=== PATIENT | female | born 1940 | race Caucasian/White ===

== ENCOUNTER 2019-04-08 10:39 | Outpatient (CLI) | payer MEDICARE, MEDICAID, SELFPAY ==
[2019-04-08 11:54] LABS: Albumin Level 3.5 g/dL (3.5-5.2); Anion Gap 16.8 (5-19); Blood Urea Nitrogen 18 mg/dL (8-23); Calcium 9.6 mg/dL (8.5-10.5); Carbon Dioxide 23 mmol/L (22-29); Chloride 105 mmol/L (98-107); Glucose 141 mg/dL (74-106); Phosphorus 3.6 mg/dL (2.5-4.5); Potassium 3.8 mmol/L (3.5-5.1); Sodium 141 mmol/L (136-145)
[2019-04-08 12:17] LABS: Calcium 9.4 mg/dL (8.5-10.5)
[2019-04-09 10:34] LABS: Creatinine Urine, Random 57 mg/dL (28-217); Microalbumin Random Urine 10 ug/dL (0-20)
[2019-04-09 10:39] LABS: Microalbum Creatinine Ratio Ur 175 mg/dL (0-20)
== END 2019-04-08 10:40 | disposition home or self-care (01) ==
LOC: LAB 10:46
PROVIDERS: Family Provider Internal Medicine; PCP Internal Medicine; Visit Provider Internal Medicine Nephrology
DX: N18.4 Chronic kidney disease, stage 4 (severe) (principal)
CPT/HCPCS: 36415; 80069; 82044; 82310; 83970

== ENCOUNTER 2020-02-21 15:29 | Outpatient (CLI) | payer MEDICARE, MEDICAID, SELFPAY | END 2020-02-21 15:30 | disposition home or self-care (01) | PROVIDERS: PCP Internal Medicine; Visit Provider Internal Medicine | DX: R19.7 Diarrhea, unspecified (principal) | CPT/HCPCS: 87493 ==

== ENCOUNTER 2020-11-25 15:27 | Outpatient (CLI) | payer MEDICARE, MEDICAID, SELFPAY ==
[2020-11-25 16:13] LABS: Basophils % 0.8 %; Eosinophils # 0.1 10^3/uL (0.0-0.8); Eosinophils % 1.4 %; Hemoglobin 12.5 g/dL (11.5-15.3); Lymphocytes # 0.8 10^3/uL (0.8-4.8); Lymphocytes % 16.5 %; Mean Corpuscular HGB Conc 31.3 g/dL (30.0-36.0); Mean Corpuscular Hemoglobin 30.3 pg (28.0-34.0); Mean Corpuscular Volume 97.1 fl (81-99); Mean Platelet Volume 10.2 fL (7.4-10.4); Monocytes # 0.4 10^3/uL (0.2-0.9); Monocytes % 8.2 %; Neutrophils # 3.56 10^3/uL (1.8-7.7); Neutrophils % 72.7 %; Nucleated Red Blood Cells % 0 %; Platelet Count 114 10^3/cmm (130-400); Red Blood Count 4.12 10^6/uL (4.1-5.3); Red Cell Distribution Width 14.9 % (12.1-15.1); White Blood Count 4.9 10^3/uL (4.0-10.0)
[2020-11-25 16:43] LABS: Albumin Level 3.3 g/dL (3.5-5.2); Blood Urea Nitrogen 32 mg/dL (8-23); Calcium 8.6 mg/dL (8.5-10.5); Carbon Dioxide 16 mmol/L (22-29); Chloride 105 mmol/L (98-107); Glucose 183 mg/dL (65-115); Phosphorus 2.9 mg/dL (2.5-4.5); Sodium 134 mmol/L (136-145)
[2020-11-25 16:44] LABS: Anion Gap 17.4 (5-19); Potassium 4.4 mmol/L (3.5-5.1)
[2020-11-25 17:31] LABS: Creatinine Urine, Random 98 mg/dL (28-217); Microalbumin Random Urine 36 ug/dL (0-20)
[2020-11-25 17:32] LABS: Calcium 8.3 mg/dL (8.5-10.5); Parathyroid Hormone 85.9 pg/mL (15-65)
[2020-11-25 17:35] LABS: Microalbum Creatinine Ratio Ur 367 mg/dL (0-20)
== END 2020-11-25 15:28 | disposition home or self-care (01) ==
LOC: LAB 15:36
PROVIDERS: PCP Internal Medicine; Visit Provider Internal Medicine Nephrology
DX: N18.4 Chronic kidney disease, stage 4 (severe) (principal)
CPT/HCPCS: 36415; 80069; 82044; 82310; 83970; 85025

== ENCOUNTER → 2021-03-17 12:03 | Outpatient (BNVA) | payer MEDICARE, MEDICAID, SELFPAY | PROVIDERS: PCP Internal Medicine; Visit Provider Internal Medicine | DX: E11.9 Type 2 diabetes mellitus without complications (principal); E87.6 Hypokalemia | CPT/HCPCS: 80048 ==

== ENCOUNTER 2021-04-06 15:48 | Outpatient (CLI) | payer MEDICARE, MEDICAID, SELFPAY ==
[2021-04-06 16:30] LABS: Basophils % 0.8 %; Eosinophils # 0.1 10^3/uL (0.0-0.8); Eosinophils % 2.8 %; Hematocrit 39.1 % (37.0-47.0); Hemoglobin 12.6 g/dL (11.5-15.3); Lymphocytes % 26.1 %; Mean Corpuscular HGB Conc 32.2 g/dL (30.0-36.0); Mean Corpuscular Hemoglobin 30.2 pg (28.0-34.0); Mean Corpuscular Volume 93.8 fl (81-99); Mean Platelet Volume 10.8 fL (7.4-10.4); Monocytes # 0.4 10^3/uL (0.2-0.9); Monocytes % 11.4 %; Neutrophils # 2.28 10^3/uL (1.8-7.7); Neutrophils % 58.9 %; Nucleated Red Blood Cells % 0 %; Platelet Count 103 10^3/cmm (130-400); Red Blood Count 4.17 10^6/uL (4.1-5.3); Red Cell Distribution Width 15.9 % (12.1-15.1); White Blood Count 3.9 10^3/uL (4.0-10.0)
[2021-04-06 17:31] LABS: Creatinine Urine, Random 47 mg/dL (28-217); Microalbumin Random Urine 13 ug/dL (0-20)
[2021-04-06 17:32] LABS: Blood Urea Nitrogen 21 mg/dL (8-23); Calcium 8.9 mg/dL (8.5-10.5); Carbon Dioxide 22 mmol/L (22-29); Chloride 98 mmol/L (98-107); Glucose 252 mg/dL (65-115); Phosphorus 3.1 mg/dL (2.5-4.5); Sodium 133 mmol/L (136-145)
[2021-04-06 17:33] LABS: Microalbum Creatinine Ratio Ur 277 mg/dL (0-20)
[2021-04-06 17:34] LABS: Anion Gap 16.9 (5-19); Potassium 3.9 mmol/L (3.5-5.1)
[2021-04-06 18:15] LABS: Calcium 8.8 mg/dL (8.5-10.5)
[2021-04-06 19:29] LABS: Parathyroid Hormone 66.6 pg/mL (15-65)
== END 2021-04-06 15:49 | disposition home or self-care (01) ==
LOC: LAB 16:05
PROVIDERS: PCP Internal Medicine; Visit Provider Internal Medicine Nephrology
DX: N18.4 Chronic kidney disease, stage 4 (severe) (principal)
CPT/HCPCS: 36415; 80069; 82044; 82310; 83970; 85025

== ENCOUNTER 2021-10-06 10:09 | Outpatient (CLI) | payer MEDICARE, SELFPAY ==
[2021-10-06 10:49] LABS: Basophils # 0.1 10^3/uL (0.0-0.1); Eosinophils # 0.3 10^3/uL (0.0-0.8); Eosinophils % 5.2 %; Hemoglobin 11.8 g/dL (11.5-15.3); Lymphocytes # 0.8 10^3/uL (0.8-4.8); Lymphocytes % 16.9 %; Mean Corpuscular HGB Conc 34.7 g/dL (30.0-36.0); Mean Corpuscular Hemoglobin 31.4 pg (28.0-34.0); Mean Corpuscular Volume 90.4 fl (81-99); Mean Platelet Volume 10.3 fL (7.4-10.4); Monocytes # 0.5 10^3/uL (0.2-0.9); Neutrophils # 3.18 10^3/uL (1.8-7.7); Neutrophils % 66.7 %; Nucleated Red Blood Cells % 0 %; Platelet Count 106 10^3/cmm (130-400); Red Blood Count 3.76 10^6/uL (4.1-5.3); Red Cell Distribution Width 13.4 % (12.1-15.1); White Blood Count 4.8 10^3/uL (4.0-10.0)
[2021-10-06 11:03] LABS: Creatinine Urine, Random 43 mg/dL (28-217); Microalbumin Random Urine 20 ug/dL (0-20)
[2021-10-06 11:03] LABS: Albumin Level 3.1 g/dL (3.5-5.2); Anion Gap 13.8 (5-19); Blood Urea Nitrogen 24 mg/dL (8-23); Carbon Dioxide 21 mmol/L (22-29); Chloride 98 mmol/L (98-107); Glucose 266 mg/dL (65-115); Phosphorus 2.6 mg/dL (2.5-4.5); Potassium 3.8 mmol/L (3.5-5.1); Sodium 129 mmol/L (136-145)
[2021-10-06 11:04] LABS: Microalbum Creatinine Ratio Ur 465 mg/dL (0-20)
[2021-10-06 11:06] LABS: Parathyroid Hormone 100.5 pg/mL (15-65)
[2021-10-06 11:19] LABS: 25 Hydroxy Vitamin D 11 ng/mL (30-100)
== END 2021-10-06 10:10 | disposition home or self-care (01) ==
PROVIDERS: PCP Internal Medicine; Visit Provider Registered Nurse
DX: N18.4 Chronic kidney disease, stage 4 (severe) (principal)
CPT/HCPCS: 36415; 80069; 82044; 82306; 82310; 83970; 85025

== ENCOUNTER 2021-10-13 15:26 | Outpatient (CLI) | payer MEDICARE, SELFPAY ==
[2021-10-13 17:09] LABS: Blood Urea Nitrogen 27 mg/dL (8-23); Calcium 8.3 mg/dL (8.5-10.5); Carbon Dioxide 26 mmol/L (22-29); Chloride 97 mmol/L (98-107); Glucose 384 mg/dL (65-115); Osmolality Calculated 293 mOsm/kg (285-295); Sodium 131 mmol/L (136-145)
[2021-10-13 17:12] LABS: Anion Gap 12.6 (5-19); Potassium 4.6 mmol/L (3.5-5.1)
== END 2021-10-13 15:27 | disposition home or self-care (01) ==
PROVIDERS: PCP Internal Medicine; Visit Provider Internal Medicine Nephrology
DX: N18.4 Chronic kidney disease, stage 4 (severe) (principal)
CPT/HCPCS: 36415; 80048

== ENCOUNTER 2021-10-27 14:29 | Outpatient (CLI) | payer MEDICARE, MEDICAID, SELFPAY ==
[2021-10-27 15:42] LABS: Blood Urea Nitrogen 27 mg/dL (8-23); Carbon Dioxide 25 mmol/L (22-29); Chloride 99 mmol/L (98-107); Glucose 385 mg/dL (65-115); Osmolality Calculated 299 mOsm/kg (285-295); Sodium 134 mmol/L (136-145)
[2021-10-27 15:47] LABS: Anion Gap 14.2 (5-19); Potassium 4.2 mmol/L (3.5-5.1)
== END 2021-10-27 14:30 | disposition home or self-care (01) ==
LOC: LAB 14:33
PROVIDERS: PCP Internal Medicine; Visit Provider Internal Medicine Nephrology
DX: E87.1 Hypo-osmolality and hyponatremia (principal)
CPT/HCPCS: 80048

== ENCOUNTER 2022-01-12 13:19 | Outpatient (CLI) | payer MEDICARE, SELFPAY ==
[2022-01-12 14:20] LABS: Basophils # 0.1 10^3/uL (0.0-0.1); Basophils % 1.1 %; Eosinophils # 0.3 10^3/uL (0.0-0.8); Eosinophils % 5.5 %; Hematocrit 34.8 % (37.0-47.0); Hemoglobin 11.6 g/dL (11.5-15.3); Lymphocytes # 0.7 10^3/uL (0.8-4.8); Lymphocytes % 14.8 %; Mean Corpuscular HGB Conc 33.3 g/dL (30.0-36.0); Mean Platelet Volume 11.1 fL (7.4-10.4); Monocytes # 0.5 10^3/uL (0.2-0.9); Monocytes % 10.6 %; Neutrophils # 3.07 10^3/uL (1.8-7.7); Neutrophils % 67.8 %; Nucleated Red Blood Cells % 0 %; Platelet Count 94 10^3/cmm (130-400); Red Blood Count 3.74 10^6/uL (4.1-5.3); Red Cell Distribution Width 13.9 % (12.1-15.1); White Blood Count 4.5 10^3/uL (4.0-10.0)
[2022-01-12 14:43] LABS: Albumin Level 2.9 g/dL (3.5-5.2); Anion Gap 12.4 (5-19); Blood Urea Nitrogen 26 mg/dL (8-23); Calcium 8.3 mg/dL (8.5-10.5); Carbon Dioxide 26 mmol/L (22-29); Chloride 97 mmol/L (98-107); Glucose 309 mg/dL (65-115); Phosphorus 2.5 mg/dL (2.5-4.5); Potassium 4.4 mmol/L (3.5-5.1); Sodium 131 mmol/L (136-145)
[2022-01-12 14:44] LABS: Calcium 8.1 mg/dL (8.5-10.5)
[2022-01-12 14:48] LABS: Parathyroid Hormone 121.1 pg/mL (15-65)
[2022-01-12 17:45] LABS: Creatinine Urine, Random 28 mg/dL (28-217); Microalbumin Random Urine 11 ug/dL (0-20)
[2022-01-12 17:49] LABS: Microalbum Creatinine Ratio Ur 393 mg/dL (0-20)
== END 2022-01-12 13:20 | disposition home or self-care (01) ==
PROVIDERS: PCP Internal Medicine; Visit Provider Registered Nurse
DX: N18.4 Chronic kidney disease, stage 4 (severe) (principal)
CPT/HCPCS: 80069; 82044; 82310; 83970; 85025

== ENCOUNTER 2022-04-13 15:02 | Outpatient (CLI) | payer MEDICARE, MEDICAID, SELFPAY ==
[2022-04-13 16:08] LABS: Basophils # 0.1 10^3/uL (0.0-0.1); Eosinophils # 0.2 10^3/uL (0.0-0.8); Eosinophils % 4.2 %; Hematocrit 35.6 % (37.0-47.0); Hemoglobin 11.9 g/dL (11.5-15.3); Lymphocytes # 0.6 10^3/uL (0.8-4.8); Lymphocytes % 11.5 %; Mean Corpuscular HGB Conc 33.4 g/dL (30.0-36.0); Mean Corpuscular Hemoglobin 31.2 pg (28.0-34.0); Mean Corpuscular Volume 93.4 fl (81-99); Mean Platelet Volume 10.4 fL (7.4-10.4); Monocytes # 0.5 10^3/uL (0.2-0.9); Monocytes % 11.1 %; Neutrophils # 3.44 10^3/uL (1.8-7.7); Nucleated Red Blood Cells % 0 %; Platelet Count 115 10^3/cmm (130-400); Red Blood Count 3.81 10^6/uL (4.1-5.3); White Blood Count 4.8 10^3/uL (4.0-10.0)
[2022-04-13 16:49] LABS: Calcium 8.2 mg/dL (8.5-10.5); Parathyroid Hormone 177.3 pg/mL (15-65)
[2022-04-13 18:08] LABS: Creatinine Urine, Random 130 mg/dL (28-217); Microalbumin Random Urine 19 ug/dL (0-20)
[2022-04-13 18:09] LABS: Microalbum Creatinine Ratio Ur 146 mg/dL (0-20)
[2022-04-13 18:53] LABS: Albumin Level 2.7 g/dL (3.5-5.2); Blood Urea Nitrogen 27 mg/dL (8-23); Calcium 8.2 mg/dL (8.5-10.5); Carbon Dioxide 20 mmol/L (22-29); Chloride 102 mmol/L (98-107); Glucose 303 mg/dL (65-115); Phosphorus 2.6 mg/dL (2.5-4.5); Sodium 136 mmol/L (136-145)
[2022-04-13 19:04] LABS: 25 Hydroxy Vitamin D 35 ng/mL (30-100)
== END 2022-04-13 15:03 | disposition home or self-care (01) ==
PROVIDERS: PCP Internal Medicine; Visit Provider Registered Nurse
DX: E55.9 Vitamin D deficiency, unspecified (principal)
CPT/HCPCS: 80069; 82044; 82306; 82310; 83970; 85025

== ENCOUNTER 2022-04-29 11:37 | Outpatient (CLI) | payer MEDICARE, MEDICAID, SELFPAY ==
[2022-04-29 13:20] LABS: Albumin Level 2.6 g/dL (3.5-5.2); Anion Gap 12.4 (5-19); Blood Urea Nitrogen 28 mg/dL (8-23); Calcium 8.7 mg/dL (8.5-10.5); Carbon Dioxide 29 mmol/L (22-29); Chloride 99 mmol/L (98-107); Glucose 347 mg/dL (65-115); Phosphorus 2.6 mg/dL (2.5-4.5); Potassium 4.4 mmol/L (3.5-5.1); Sodium 136 mmol/L (136-145)
== END 2022-04-29 11:38 | disposition home or self-care (01) ==
PROVIDERS: PCP Internal Medicine; Visit Provider Internal Medicine Nephrology
DX: N18.4 Chronic kidney disease, stage 4 (severe) (principal)
CPT/HCPCS: 36415; 80069

== ENCOUNTER 2022-05-03 19:47 | Emergency (ER) | payer MEDICARE, MEDICAID, SELFPAY ==
[2022-05-03 20:16] VITALS: BP 151/69; PULSE 77; RESP 22; TEMP 36.7; O2SAT 96; BMI 31.6
[2022-05-03 21:29] LABS: Basophils % 0.2 %; Eosinophils % 0.2 %; Hematocrit 34.4 % (37.0-47.0); Hemoglobin 11.4 g/dL (11.5-15.3); Lymphocytes # 0.3 10^3/uL (0.8-4.8); Lymphocytes % 4.2 %; Mean Corpuscular HGB Conc 33.1 g/dL (30.0-36.0); Mean Corpuscular Hemoglobin 30.4 pg (28.0-34.0); Mean Corpuscular Volume 91.7 fl (81-99); Mean Platelet Volume 10.6 fL (7.4-10.4); Monocytes # 0.3 10^3/uL (0.2-0.9); Monocytes % 4.4 %; Neutrophils # 5.96 10^3/uL (1.8-7.7); Neutrophils % 90.4 %; Nucleated Red Blood Cells % 0 %; Platelet Count 95 10^3/cmm (130-400); Red Blood Count 3.75 10^6/uL (4.1-5.3); Red Cell Distribution Width 13.7 % (12.1-15.1); White Blood Count 6.6 10^3/uL (4.0-10.0)
[2022-05-03 21:40] VITALS: BP 152/62; PULSE 74; RESP 17; TEMP 36.7; O2SAT 97
[2022-05-03 22:02] LABS: Alanine Aminotransferase 59 U/L (0-33); Albumin Level 2.8 g/dL (3.5-5.2); Alkaline Phosphatase 349 U/L (35-105); Anion Gap 19.2 (5-19); Aspartate Amino Transferase 101 U/L (0-32); Blood Urea Nitrogen 33 mg/dL (8-23); Calcium 8.1 mg/dL (8.5-10.5); Carbon Dioxide 23 mmol/L (22-29); Chloride 95 mmol/L (98-107); Globulin 3.3 g/dL (1.3-4.6); Lipase 36 U/L (13-60); NT Pro B Type Natriuretic Pept 6285 pg/mL (0-450); Osmolality Calculated 311 mOsm/kg (285-295); Potassium 5.2 mmol/L (3.5-5.1); Sodium 132 mmol/L (136-145); Total Bilirubin 1.5 mg/dL (0.15-1.2); Total Protein 6.1 g/dL (6.6-8.7)
[2022-05-03 22:13] LABS: Glucose 634 mg/dL (65-115)
--- NOTE | 2022-05-03 22:22 | ECG_ITS ---
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 Measurements Intervals [place] Rate: 76 P: 0 TN: 0 QRS: -47 QRSD: 158 T: 128 QT: 478 QTc: 540 Interpretive Statements ATRIAL FIBRILLATION LEFT AXIS DEVIATION [QRS AXIS < -30] INTRAVENTRICULAR CONDUCTION DELAY [130+ ms QRS DURATION] Compared to ECG 11/13/2018 04:24:25 Sinus rhythm no longer present Myocardial infarct finding no longer present Electronically Signed On 05-04-2022 14:22:17 ELECTRONICS TESTER by Frantz Warren M.D. [id number]
--- NOTE | 2022-05-03 22:22 | CTR_ITS ---
PROCEDURE INFORMATION: Exam: CT Head Without Contrast Exam date and time: 05/03/2022 10:48 PM Age: 81 years old Clinical indication: Altered mental status/memory loss; Confusion or disorientation; Prior surgery; Surgery type: Cataract; Patient HX: Confusion with general weakness. ; Additional info: AMS TECHNIQUE: Imaging protocol: Computed tomography of the head without contrast. Radiation optimization: All CT scans at this facility use at least one of these dose optimization techniques: automated exposure control; mA and/or kV adjustment per patient size (includes targeted exams where dose is matched to clinical indication); or iterative reconstruction. REPORTING DATA: Count of CT and Cardiac NM exams in prior 12 months: This patient has received 0 known CTs and 0 known cardiac nuclear medicine studies in the 12 months prior to the current study. COMPARISON: CT head wo con* [id number] 10/25/2018 2:27 PM RADIATION DOSE METRICS: Total DLP (mGy-cm): 953.38 FINDINGS: Brain: Moderate diffuse white matter disease likely reflecting chronic microvascular ischemic changes. Cerebral ventricles: No ventriculomegaly. Paranasal sinuses: Visualized sinuses are unremarkable. No fluid levels. Mastoid air cells: Visualized mastoid air cells are well aerated. Bones/joints: Unremarkable. No acute fracture. Soft tissues: Unremarkable. CT/CT head wo con* [id number] IMPRESSION: Negative for intracranial hemorrhage or mass effect.
--- NOTE | 2022-05-03 22:22 | XRR_ITS ---
PROCEDURE INFORMATION: Exam: XR Chest Exam date and time: 05/03/2022 10:26 PM Age: 81 years old Clinical indication: Shortness of breath; Prior surgery; Surgery type: Gb; Patient HX: General weakness with SOB. History of afib. TECHNIQUE: Imaging protocol: Radiologic exam of the chest. Views: 1 view. COMPARISON: CR XR chest 1V [id number] 11/12/2018 11:21 PM FINDINGS: Lungs: Bibasilar atelectasis versus infiltrate. Right lower lobe calcified benign granuloma. Pleural spaces: Unremarkable. No pleural effusion. No pneumothorax. Heart/Mediastinum: Unremarkable. No cardiomegaly. Bones/joints: Unremarkable. XR/XR chest 1V portable [id number] IMPRESSION: 1. Bibasilar atelectasis versus infiltrate. 2. Right lower lobe calcified benign granuloma.
--- NOTE | 2022-05-03 22:28 | ED_ITS ---
HPI - Weakness General: Chief complaint: Weakness Stated complaint: bilateral swelling Time Seen by Provider: 05/03/22 22:14 Source: patient and family Mode of arrival: ambulatory Limitations: no limitations History of Present Illness: 81-year-old female with a history lower extremity edema she has been on diuretics but daughter states that her edema is worsened and she has had some weeping states has been worse today states today she has had some weakness along with some difficulty walking she does live with her daughter who takes care of her states that she had some slight confusion today as well she has been on steroids for inflammation of the salivary gland her glucose here is in the 600s she is a diabetic she denies any chest pain patient answering my questions here appropriately at this time. Denies any pain in her legs. Associated symptoms: Reports confusion; Denies chest pain, dysuria, easy bruising, nausea or vomiting Review of Systems Const: Reports: fatigue Eyes: Denies: blurry vision or eye discomfort ENMT: Denies: throat pain or dental pain Card: Denies: chest pain Resp: Reports: dyspnea GI: Denies: abdominal pain, nausea, vomiting or diarrhea : Denies: dysuria Musc: Reports: extremity swelling Skin/Breast: Denies: rash Neuro: Reports: confusion Psych: Denies: depression Davi/Lymph: Denies: easy bruising All/Imm: Denies: urticaria PFSH ED PFSH: Medical History (Updated 05/04/22 @ 01:15 by Debora Seymour MD) A-fib CKD (chronic kidney disease), stage III Diabetes mellitus HTN (hypertension), benign Surgical History S/P appendectomy S/P cataract surgery S/P cholecystectomy S/P hysterectomy S/P tonsillectomy and adenoidectomy Family History Mother Hypertension Other Cancer Diabetes Stroke Social History Smoking and tobacco status: former smoker Alcohol intake: never Caregiver/support person: Yes Marital status: / Physical Exam Const: COMMON NORMALS: patient oriented x3 and healthy appearing HENMT: COMMON NORMALS: normocephalic and atraumatic HEAD & SCALP: normocephalic and atraumatic Eye: COMMON NORMALS: Equal, round and reactive pupils present and EOMs intact bilaterally PUPIL: Yes Equal, round and reactive pupils present Neck/C-Spine: COMMON NORMALS: full ROM and supple Chest: COMMONS NORMALS: normal inspection of the chest and normal palpation of entire chest wall Resp: COMMON NORMALS: normal respiratory effort, No retractions, No use of accessory muscles and clear to auscultation bilaterally AUSCULTATION: clear to auscultation bilaterally Cardio: COMMON NORMALS: regular rate, regular rhythm and No murmurs present (Cardio) RATE: regular rate RHYTHM: regular rhythm GI: COMMON NORMALS: Normal to inspection, nondistended, normoactive bowel sounds present, Soft to palpation, non-tender and no masses PALPATION: Yes Soft to palpation Extremity: COMMON NORMALS: full ROM NARRATIVE EXTREMITY EXAM: 2+edema to le Neuro: COMMON NORMALS: patient oriented x3, moves all extremities and no focal motor deficits Psych: COMMON NORMALS: mental status grossly normal, Normal thought process present and cooperative THOUGHT PROCESS: Normal thought process present Skin: COMMON NORMALS: no rashes or lesions noted and no wounds GENERAL SKIN EXAM: no rashes or lesions noted Course Vital Signs: Vital signs: Vital Signs Temperature 98.1 F 05/03/22 21:40 Pulse Rate 77 05/04/22 00:38 Respiratory Rate 20 H 05/04/22 00:38 Blood Pressure 152/62 05/03/22 21:40 Pulse Oximetry 100 05/04/22 00:38 Oxygen Delivery Me thod 05/03/22 21:40 MDM - Weakness Medical Decision Making Patient presents here with lower extremity edema its been chronic in nature did give her dose of Lasix here she is hyperglycemic likely from her prednisone her blood sugar here is improved as well she feels improved like to go home and informed her daughter that they need to probably increase her insulin while she is on the steroids 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 Lab Data 05/03/22 21:09 05/03/22 21:09 Radiology Impressions Chest X-Ray 05/03/22 22:22 IMPRESSION: 1. Bibasilar atelectasis versus infiltrate. 2. Right lower lobe calcified benign granuloma. Head CT 05/03/22 22:22 IMPRESSION: Negative for intracranial hemorrhage or mass effect. Laboratory Results WBC 6.6 10^3/uL (4.0-10.0) 05/03/22 21:09 RBC 3.75 10^6/uL (4.1-5.3) L 05/03/22 21:09 Hgb 11.4 g/dL (11.5-15.3) L 05/03/22 21:09 Hct 34.4 % (37.0-47.0) L 05/03/22 21:09 MCV 91.7 fl (81-99) 05/03/22 21:09 MCH 30.4 pg (28.0-34.0) 05/03/22 21: MCHC 33.1 g/dL (30.0-36.0) 05/03/22 21:09 RDW 13.7 % (12.1-15.1) 05/03/22 21:09 Plt Count 95 10^3/cmm (130-400) L 05/03/22 21:09 MPV 10.6 fL (7.4-10.4) H 05/03/22 21:09 Neut % (Auto) 90.4 % 05/03/22 21:09 Lymph % (Auto) 4.2 % 05/03/22 21:09 [place] % (Auto) 4.4 % 05/03/22 21:09 Eos % (Auto) 0.2 % 05/03/22 21:09 Baso % (Auto) 0.2 % 05/03/22 21:09 Neut # (Auto) 5.96 10^3/uL (1.8-7.7) 05/03/22 21:09 Lymph # (Auto) 0.3 10^3/uL (0.8-4.8) L 05/03/22 21:09 [place] # (Auto) 0.3 10^3/uL (0.2-0.9) 05/03/22 21:09 Eos # (Auto) 0.0 10^3/uL (0.0-0.8) 05/03/22 21:09 Baso # (Auto) 0.0 10^3/uL (0.0-0.1) 05/03/22 21:09 Nucleated RBC % (auto) 0 % 05/03/22 21:09 Nucleated RBCs # 0.0 /100WBC 05/03/22 21:09 Sodium 132 mmol/L (136-145) L 05/03/22 21:09 Potassium 5.2 mmol/L (3.5-5.1) H 05/03/22 21:09 Chloride 95 mmol/L (98-107) L 05/03/22 21:09 Carbon Dioxide 23 mmol/L (22-29) 05/03/22 21:09 Anion Gap 19.2 (5-19) H 05/03/22 21:09 BUN 33 mg/dL (8-23) H 05/03/22 21:09 Creatinine 2.3 mg/dL (0.5-0.9) H 05/03/22 21:09 GFR Calculation Not Reportable 05/03/22 21:09 Glucose 634 mg/dL (65-115) H* 05/03/22 21:09 POC Glucose 453 mg/dL (70-110) H 05/04/22 01:04 Calculated Osmolality 311 mOsm/kg (285-295) H 05/03/22 21:09 Calcium 8.1 mg/dL (8.5-10.5) L 05/03/22 21:09 Total Bilirubin 1.5 mg/dL (0.15-1.2) H 05/03/22 21:09 AST 101 U/L (0-32) H 05/03/22 21:09 ALT 59 U/L (0-33) H 05/03/22 21:09 Alkaline Phosphatase 349 U/L (35-105) H 05/03/22 21:09 NT-Pro-B Natriuret Pep 6285 pg/mL (0-450) H 05/03/22 21:09 Total Protein 6.1 g/dL (6.6-8.7) L 05/03/22 21:09 Albumin 2.8 g/dL (3.5-5.2) L 05/03/22 21:09 Globulin 3.3 g/dL (1.3-4.6) 05/03/22 21:09 Lipase 36 U/L (13-60) 05/03/22 21:09 Urine Color Yellow (Yellow) 05/04/22 00:52 Urine Appearance Sl hazy (CLEAR) A 05/04/22 00:52 Urine pH 7 (5-7) 05/04/22 00:52 Ur Specific [place] 1.010 (1.005-1.030) 05/04/22 00:52 Urine Protein Neg (Negative) 05/04/22 00:52 Urine Glucose (UA) 4+ (Normal) H 05/04/22 00:52 Urine Ketones Negative (Negative) 05/04/22 00:52 Urine Blood 2+ (Negative) H 05/04/22 00:52 Urine Nitrate Negative (Negative) 05/04/22 00:52 Urine Bilirubin Neg (Negative) 05/04/22 00:52 Urine Urobilinogen Norm mg/dL (Negative) 05/04/22 00:52 Ur Leukocyte Esterase Negative (Negative) 05/04/22 00:52 Urine RBC None /hpf (0-2) 05/04/22 00:52 Urine WBC None /hpf (0-5) 05/04/22 00:52 Ur Squamous Epith Cells None /hpf (0-5) 05/04/22 00:52 Amorphous Sediment 1+ /hpf 05/04/22 00:52 Urine Bacteria None /hpf (NONE) 05/04/22 00:52 EKG Data EKG 1: I personally reviewed and interpreted this EKG as follows: EKG interpretation date: 05/03/22 EKG interpretation time: 22:40 Interpretation: afib hr [address] or t wave abnormalities qrs 76 qtc 158 Discharge Plan Discharge Patient Disposition: Home Clinical Impression: Bilateral edema of lower extremity, Hyperglycemia Condition: Stable Prescriptions: No Action sodium bicarbonate 650 mg tablet 650 mg PO BID ketoconazole 200 mg tablet 200 mg PO DAILY Qty: 10 0RF nitroglycerin [Nitrostat] 0.4 mg tablet, sublingual 0.4 mg SUBLINGUAL Q5M PRN (Reason: chest pain) Qty: 30 3RF furosemide 40 mg tablet 40 mg PO QAM PRN (Reason: edema) Qty: 90 3RF rosuvastatin 20 mg tablet 20 mg PO DAILY Qty: 90 3RF (DME) ReliOn Prime Test Strips Strip See Rx Instructions .Route Qty: 100 3RF Rx Instructions: Test once daily clopidogrel 75 mg tablet See Rx Instructions .ROUTE .COMPLEX Qty: 30 3RF Dose Instruction: Take 1 tablet by mouth once daily Rx Instructions: Take 1 tablet by mouth once daily potassium chloride 10 mEq capsule, extended release 20 meq PO DAILY PRN (Reason: low potassium) Qty: 60 3RF Rx Instructions: SMALLEST TAB POSSIBLE Januvia 100 mg tablet 100 mg PO DAILY Qty: 30 3RF glimepiride 4 mg tablet 4 mg PO BID Qty: 60 3RF Discharge Orders: Discharge ED (Routine); Ordered 05/04/22 Ordered By: Debora Seymour Referrals: Kalin Hawkins MD [Primary Care Provider] - 1-3 days Discharge Diet: Advance as tolerated Discharge Activity: Resume usual activity Patient Instructions: Leg Edema (ED) Coding Level of Care Code 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
[2022-05-04 00:04] LABS: Glucose Point of Care 528 mg/dL (70-110)
[2022-05-04 00:04] LABS: Glucose Point of Care 531 mg/dL (70-110)
[2022-05-04] MEDS: FUROsemide 10 mg/mL SDV 10mL 60 MG IVP (00:06)
[2022-05-04] MEDS: insulin regular-human 100 units/1 mL 10 UNIT IVP (00:09)
[2022-05-04 00:38] VITALS: PULSE 77; RESP 20; O2SAT 100
[2022-05-04 01:06] LABS: Bilirubin Urine Neg (Negative); Blood Urine 2+ (Negative); Glucose Urine UA 4+ (Normal); Ketones Urine Negative (Negative); Nitrate Urine Negative (Negative); Protein Urine Neg (Negative); Urine Appearance SL Hazy (CLEAR); Urine Color Yellow (Yellow); pH Urine 7 (5-7)
[2022-05-04 01:07] LABS: Glucose Point of Care 463 mg/dL (70-110)
[2022-05-04 01:07] LABS: Add Urine Microscopic? YES; Leukocyte Esterase Urine Negative (Negative); Urobilinogen Urine Norm (Negative)
[2022-05-04 01:07] LABS: Glucose Point of Care 453 mg/dL (70-110)
[2022-05-04 01:09] LABS: Amorphous Sediment Urine 1+ /hpf
[2022-05-04] MEDS: insulin regular-human 100 units/1 mL 6 UNIT IVP (01:31)
[2022-05-04 02:19] LABS: Glucose Point of Care 392 mg/dL (70-110)
== END 2022-05-04 02:40 | disposition home or self-care (01) ==
PROVIDERS: Emergency Provider Emergency Medicine; PCP Internal Medicine
DX: R60.0 Localized edema (principal); E11.65 Type 2 diabetes mellitus with hyperglycemia; Z79.02 Long term (current) use of antithrombotics/antiplatelets; Z79.84 Long term (current) use of oral hypoglycemic drugs; E11.22 Type 2 diabetes mellitus with diabetic chronic kidney disease; I12.9 Hypertensive chronic kidney disease with stage 1 through stage 4 chronic kidney disease, or unspecified chronic kidney disease; N18.30 Chronic kidney disease, stage 3 unspecified; Z87.891 Personal history of nicotine dependence
CPT/HCPCS: 36415; 36416; 51702; 70450; 71045; 80053; 81001; 82962; 83690; 83880; 85025; 93005; 96374; 96375; 96376; 99285; J1815; J1940

== ENCOUNTER 2022-05-20 14:07 | Outpatient (CLI) | payer MEDICARE, MEDICAID, SELFPAY ==
[2022-05-20 14:49] LABS: Anion Gap 14.9 (5-19); Blood Urea Nitrogen 35 mg/dL (8-23); Calcium 8.1 mg/dL (8.5-10.5); Carbon Dioxide 25 mmol/L (22-29); Chloride 104 mmol/L (98-107); Glucose 193 mg/dL (65-115); Osmolality Calculated 301 mOsm/kg (285-295); Potassium 4.9 mmol/L (3.5-5.1); Sodium 139 mmol/L (136-145)
== END 2022-05-20 14:08 | disposition home or self-care (01) ==
LOC: LAB 14:10
PROVIDERS: PCP Internal Medicine; Visit Provider Internal Medicine Nephrology
DX: N18.4 Chronic kidney disease, stage 4 (severe) (principal)
CPT/HCPCS: 36415; 80048

== ENCOUNTER 2022-06-14 13:52 | Inpatient (IN) | payer MEDICARE, MEDICAID, SELFPAY ==
[2022-06-14] VITALS (11 sets, daily range): BP systolic 91–138; BP diastolic 57–86; PULSE 58–109; RESP 15–18; TEMP 35.6–36.5; O2SAT 95–100; BMI 31.1
--- NOTE | 2022-06-14 14:15 | XR_ITS ---
WS: [id number] EXAMINATION: XR chest 1V portable [id number] REASON FOR EXAM: altered mental status COMPARISON: 05/03/2022 ORDER DATE:06/14/2022 2:19 PM TECHNIQUE: A single, portable frontal chest x-ray was obtained. X-RAY FINDINGS: There is left basilar opacity which obscures the left heart border, the entire left hemidiaphragm and and the costophrenic angle. There is inability to evaluate the left heart border there appears to be some basal atelectasis. Prom inent calcified granulomata noted on the right.. No evidence for pulmonary edema. Soft tissue and osseous structures are unremarkable. No tubes or lines are present. XR/XR chest 1V portable [id number] IMPRESSION: The consolidated appearance in the left base could be varying combinations of a telectasis infiltrate and pleural effusion. Recommend a lateral view or chest C T to further evaluate if clinically indicated. Some of this change may be chron ic as suggested by similar change on 05/03/2022
--- NOTE | 2022-06-14 14:15 | CT_ITS ---
WS: [id number] CT HEAD TECHNIQUE: Noncontrast CT of the head obtained from the skullbase to the vertex. CLINICAL INFORMATION: altered mental status COMPARISON: May 03, 2022 DLP: 975.[address] scans at [facility] use at least one of these dose optimization techniques: automated e xposure control; mA and/or kV adjustment per patient size (includes targeted exams where dose is matc hed to clinical indication); or iterative reconstruction. FINDINGS: No evidence of intracranial hemorrhage or mass effect. Ventricular system and basal cisterns are mccormick nt. Moderate small vessel changes with moderate parenchymal volume loss. Intracranial vascular calcif ication. No extra-axial fluid collections. No evidence of mass or mass effect. Small retention cyst or polyp in the LEFT posterior ethmoid air cell. Mastoid air cells are well aera elizabeth. Cavernous carotid calcification. CT/CT head wo con* [id number] IMPRESSION: 1. No evidence of intracranial hemorrhage or mass effect. 2. Moderate small vessel changes. Moderate parenchymal volume loss. 3. Intracranial vascular calcification. 4. No acute intracranial findings.
--- NOTE | 2022-06-14 14:16 | ECG_ITS ---
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 Measurements Intervals [place] Rate: 116 P: 117 ID: [id number] QRS: -64 QRSD: 144 T: 128 QT: 395 QTc: 551 Interpretive Statements SINUS TACHYCARDIA WITH FIRST DEGREE AV BLOCK INTRAVENTRICULAR CONDUCTION DELAY [130+ ms QRS DURATION] LATERAL MYOCARDIAL INFARCTION , OF INDETERMINATE AGE [40+ ms Q WAVE AND/OR ST/T ABNORMALITY IN I/aVL/V5/V6] INFERIOR MYOCARDIAL INFARCTION , OF INDETERMINATE AGE [40+ ms Q WAVE AND/OR ST/T ABNORMALITY IN II/aVF] Compared to ECG 05/03/2022 22:40:56 First degree AV block now present Myocardial infarct finding now present Atrial fibrillation no longer present Left-axis deviation no longer present Electronically Signed On 06-15-2022 2:19:28 CDT by Frantz Warren M.D. [id number]
--- NOTE | 2022-06-14 14:41 | ED_ITS ---
HPI - General Adult General: Chief complaint: General Medical Stated complaint: AMS/ WEAKNESS/ LOW BP Time Seen by Provider: 06/14/22 14:09 History of Present Illness: Patient presents to the ER by EMS with complaints of increased generalized weakness, altered mental status, decreased urination since Monday. Patient daughter states she is normally alert oriented and can answer questions appropriately. Patient's alert only to self. MD complaint: Altered mental status Onset (ago): day(s) Relieving factors: none Exacerbating factors: none Associated symptoms: Reports no associated symptoms Treatments prior to arrival: none Review of Systems General: Reports: ROS unobtainable due to mental status PFS ED PFSH: Medical History (Updated 06/14/22 @ 17:24 by John Larose DO) A-fib CKD (chronic kidney disease), stage III Diabetes mellitus HTN (hypertension), benign Surgical History S/P appendectomy S/P cataract surgery S/P cholecystectomy S/P hysterectomy S/P tonsillectomy and adenoidectomy Family History Mother Hypertension Other Cancer Diabetes Stroke Social History Smoking and tobacco status: former smoker Alcohol intake: never Caregiver/support person: Yes Marital status: / Physical Exam Const: COMMON NORMALS: no acute distress, average body habitus, alert and well nourished ORIENTATION/CONSCIOUSNESS: Yes oriented to person HENMT: COMMON NORMALS: normocephalic, atraumatic, hearing grossly normal bilaterally, external ears normal and Normal external nose present HEAD & SCALP: normocephalic and atraumatic NOSE: Normal external nose present EXTERNAL EAR: Yes external ears normal Eye: COMMON NORMALS: Equal, round and reactive pupils present, EOMs intact bilaterally, conjunctivae normal and no scleral icterus CONJUNCTIVA: Yes conjunctivae normal PUPIL: Yes Equal, round and reactive pupils present Neck/C-Spine: COMMON NORMALS: full ROM, no lymphadenopathy, supple, no meningeal signs, no JVD and Thyroid normal THYROID: Thyroid normal Chest: COMMONS NORMALS: normal inspection of the chest and normal palpation of entire chest wall Resp: COMMON NORMALS: normal respiratory effort, No retractions, No use of accessory muscles and clear to auscultation bilaterally AUSCULTATION: clear to auscultation bilaterally Cardio: COMMON NORMALS: no JVD, S1 normal heart sound present, S2 normal heart sound present, No gallops present (Cardio), No clicks present (Cardio), No murmurs present (Cardio) and No rub (Cardio) HEART SOUNDS: S1 normal heart sound present and S2 normal heart sound present GI: COMMON NORMALS: Normal to inspection, nondistended, normoactive bowel sounds present, Soft to palpation, non-tender, No hepatosplenomegaly present and no masses PALPATION: Yes Soft to palpation and Yes No hepatosplenomegaly present : COMMON NORMALS: Yes no CVA tenderness BLADDER/KIDNEY EXAM: Yes no CVA tenderness Back/Pelvis: COMMON NORMALS: no CVA tenderness Neuro: SENSORIUM/ORIENTATION: Yes alert and Yes oriented to person MENINGEAL SIGNS: Yes no meningeal signs Psych: COMMON NORMALS: cooperative, normal affect and speech normal SPEECH: Yes normal speech Course Vital Signs: Vital signs: Vital Signs Temperature 97.7 F 06/14/22 13:54 Pulse Rate 87 06/14/22 16:30 Respiratory Rate 16 06/14/22 13:54 Blood Pressure 114/86 06/14/22 16:30 Pulse Oximetry 100 06/14/22 16:30 Oxygen Delivery [place] thod 06/14/22 16:30 [facility] - General Adult Medical Decision Making Presents to the ER by EMS with complaints of altered mental status, generalized weakness, and confusion. Patient also had decreased urination since Monday. Upon physical exam patient is alert but confused can answer simple questions appropriately with most the time with not the right answer. Lab work was obtained which showed a sodium of 127 BUN and creatinine of 34 and 2.4 AST and ALT of 81 and 36 BNP of 8170 urinalysis showed 1+ protein 2+ blood 2+ leukocyte Estrace 25-40 white blood cells 3+ bacteria, urine drug screen was negative, chest x-ray showed possible atelectasis infiltrate or pleural effusion. Recommended follow-up with CT scan CT scan of head was essentially negative. These findings was discussed with the patient as well as family. It is felt the patient would benefit from inpatient admission with IV antibiotics. Patient was discussed with Dr. Mccloud who to benefit from inpatient admission. Differential Diagnosis Altered mental status, generalized weakness, urinary tract infection Lab Data 06/14/22 14:45 06/14/22 14:45 Radiology Impressions Chest X-Ray 06/14/22 14:15 IMPRESSION: The consolidated appearance in the left base could be varying combinations of atelectasis infiltrate and pleural effusion. Recommend a lateral view or chest CT to further evaluate if clinically indicated. Some of this change may be chronic as suggested by similar change on 05/03/[address] 06/14/22 14:15 IMPRESSION: 1. No evidence of intracranial hemorrhage or mass effect. 2. Moderate small vessel changes. Moderate parenchymal volume loss. 3. Intracranial vascular calcification. 4. No acute intracranial findings. Laboratory Results WBC 4.9 10^3/uL (4.0-10.0) 06/14/22 14:45 RBC 4.62 10^6/uL (4.1-5.3) 06/14/22 14:45 Hgb 13.9 g/dL (11.5-15.3) 06/14/22 14:45 Hct 41.4 % (37.0-47.0) 06/14/22 14:45 MCV 89.6 fl (81-99) 06/14/22 14:45 MCH 30.1 pg (28.0-34.0) 06/14/22 14:45 MCHC 33.6 g/dL (30.0-36.0) 06/14/22 14:45 RDW 13.8 % (12.1-15.1) 06/14/22 14:45 Plt Count 103 10^3/cmm (130-400) L 06/14/22 14:45 MPV 10.7 fL (7.4-10.4) H 06/14/22 14:45 Neut % (Auto) 62.0 % 06/14/22 14:45 Lymph % (Auto) 24.8 % 06/14/22 14:45 [place] % (Auto) 7.3 % 06/14/22 14:45 Eos % (Auto) 4.3 % 06/14/22 14:45 Baso % (Auto) 1.4 % 06/14/22 14:45 Neut # (Auto) 3.05 10^3/uL (1.8-7.7) 06/14/22 14:45 Lymph # (Auto) 1.2 10^3/uL (0.8-4.8) 06/14/22 14:45 [place] # (Auto) 0.4 10^3/uL (0.2-0.9) 06/14/22 14:45 Eos # (Auto) 0.2 10^3/uL (0.0-0.8) 06/14/22 14:45 Baso # (Auto) 0.1 10^3/uL (0.0-0.1) 06/14/22 14:45 Nucleated RBC % (auto) 0 % 06/14/22 14:45 Nucleated RBCs # 0.0 /100WBC 06/14/22 14:45 Sodium 127 mmol/L (136-145) L 06/14/22 14:45 Potassium 4.5 mmol/L (3.5-5.1) 06/14/22 14:45 Chloride 93 mmol/L (98-107) L 06/14/22 14:45 Carbon Dioxide 19 mmol/L (22-29) L 06/14/22 14:45 Anion Gap 19.5 (5-19) H 06/14/22 14:45 BUN 34 mg/dL (8-23) H 06/14/22 14:45 Creatinine 2.4 mg/dL (0.5-0.9) H 06/14/22 14:45 GFR Calculation Not Reportable 06/14/22 14:45 Glucose 193 mg/dL (65-115) H 06/14/22 14:45 Calculated Osmolality 277 mOsm/kg (285-295) L 06/14/22 14:45 Calcium 7.8 mg/dL (8.5-10.5) L 06/14/22 14:45 Phosphorus 2.6 mg/dL (2.5-4.5) 06/14/22 14:45 Magnesium 2.1 mg/dL (1.7-2.3) 06/14/22 14:45 Total Bilirubin 1.1 mg/dL (0.15-1.2) 06/14/22 14:45 AST 81 U/L (0-32) H 06/14/22 14:45 ALT 36 U/L (0-33) H 06/14/22 14:45 Alkaline Phosphatase 268 U/L (35-105) H 06/14/22 14:45 Ammonia 48 umol/L (11-51) 06/14/22 14:45 Troponin T Baseline 74 ng/L (0-10) H 06/14/22 14:45 NT-Pro-B Natriuret Pep 8170 pg/mL (0-450) H 06/14/22 14:45 Total Protein 6.0 g/dL (6.6-8.7) L 06/14/22 14:45 Albumin 2.4 g/dL (3.5-5.2) L 06/14/22 14:45 Globulin 3.6 g/dL (1.3-4.6) 06/14/22 14:45 Urine Color Dark yellow (Yellow) 06/14/22 15:10 Urine Appearance Hazy (CLEAR) A 06/14/22 15:10 Urine pH 6 (5-7) 06/14/22 15:10 Ur Specific [place] 1.015 (1.005-1.030) 06/14/22 15:10 Urine Protein 1+ (Negative) H 06/14/22 15:10 Urine Glucose (UA) Norm (Normal) 06/14/22 15:10 Urine Ketones Negative (Negative) 06/14/22 15:10 Urine Blood 2+ (Negative) H 06/14/22 15:10 Urine Nitrate Negative (Negative) 06/14/22 15:10 Urine Bilirubin 1+ (Negative) H 06/14/22 15:10 Urine Urobilinogen 1 mg/dL (Negative) H 06/14/22 15:10 Ur Leukocyte Esterase 2+ (Negative) H 06/14/22 15:10 Urine RBC 0-4 /hpf (0-2) H 06/14/22 15:10 Urine WBC 25-40 /hpf (0-5) H 06/14/22 15:10 Ur Squamous Epith Cells 0-4 /hpf (0-5) H 06/14/22 15:10 Amorphous Sediment Not Reportable 06/14/22 15:10 Urine Bacteria 3+ /hpf (NONE) H 06/14/22 15:10 Urine Opiates Screen Negative ng/mL (Negative) 06/14/22 15:10 Ur Barbiturates Screen Negative ng/mL (Negative) 06/14/22 15:10 Ur Phencyclidine Scrn Negative ng/mL (Negative) 06/14/22 15:10 Ur Amphetamines Screen Negative ng/mL (Negative) 06/14/22 15:10 U Benzodiazepines Scrn Negative ng/mL (Negative) 06/14/22 15:10 Urine Cocaine Screen Negative ng/mL (Negative) 06/14/22 15:10 U Marijuana (THC) Screen Negative ng/mL (Negative) 06/14/22 15:10 Discharge Plan Discharge Patient Disposition: Admitted As Inpatient Clinical Impression: Acute alteration in mental status, Urinary tract infection, Acute hyponatremia Condition: Stable Prescriptions: No Action sodium bicarbonate 650 mg tablet 650 mg PO BID nitroglycerin [Nitrostat] 0.4 mg tablet, sublingual 0.4 mg SUBLINGUAL Q5M PRN (Reason: chest pain) Qty: 30 3RF (DME) ReliOn Prime Test Strips Strip See Rx Instructions .Route Qty: 100 3RF Rx Instructions: Test once daily potassium chloride 10 mEq capsule, extended release 20 meq PO DAILY PRN (Reason: low potassium) Qty: 60 3RF Rx Instructions: SMALLEST TAB POSSIBLE Januvia 100 mg tablet 100 mg PO DAILY Qty: 30 3RF torsemide 20 mg tablet 20 mg PO DAILY calcitriol 0.25 mcg capsule See Rx Instructions .ROUTE .COMPLEX Rx Instructions: 0.25 mcg orally on mon-wed-fri Vitamin D3 50 mcg (2,000 unit) Tablet 100 mcg PO DAILY clopidogrel 75 mg tablet 75 mg PO DAILY rosuvastatin 20 mg tablet 20 mg PO BEDTIME glimepiride 4 mg tablet 4 mg PO DAILY Referrals: Kalin Hawkins MD [Primary Care Provider] - Coding Level of Care Code ED Application Spec for Nirali Love
[2022-06-14 14:50] LABS: Basophils # 0.1 10^3/uL (0.0-0.1); Basophils % 1.4 %; Eosinophils # 0.2 10^3/uL (0.0-0.8); Eosinophils % 4.3 %; Hematocrit 41.4 % (37.0-47.0); Hemoglobin 13.9 g/dL (11.5-15.3); Lymphocytes # 1.2 10^3/uL (0.8-4.8); Lymphocytes % 24.8 %; Mean Corpuscular HGB Conc 33.6 g/dL (30.0-36.0); Mean Corpuscular Hemoglobin 30.1 pg (28.0-34.0); Mean Corpuscular Volume 89.6 fl (81-99); Mean Platelet Volume 10.7 fL (7.4-10.4); Monocytes # 0.4 10^3/uL (0.2-0.9); Monocytes % 7.3 %; Neutrophils # 3.05 10^3/uL (1.8-7.7); Nucleated Red Blood Cells % 0 %; Platelet Count 103 10^3/cmm (130-400); Red Blood Count 4.62 10^6/uL (4.1-5.3); Red Cell Distribution Width 13.8 % (12.1-15.1); White Blood Count 4.9 10^3/uL (4.0-10.0)
[2022-06-14 15:08] LABS: Ammonia 48 umol/L (11-51)
[2022-06-14 15:12] LABS: Troponin(5th) Baseline 74 ng/L (0-10)
[2022-06-14 15:21] LABS: Alanine Aminotransferase 36 U/L (0-33); Albumin Level 2.4 g/dL (3.5-5.2); Alkaline Phosphatase 268 U/L (35-105); Anion Gap 19.5 (5-19); Aspartate Amino Transferase 81 U/L (0-32); Blood Urea Nitrogen 34 mg/dL (8-23); Calcium 7.8 mg/dL (8.5-10.5); Carbon Dioxide 19 mmol/L (22-29); Chloride 93 mmol/L (98-107); Globulin 3.6 g/dL (1.3-4.6); Glucose 193 mg/dL (65-115); Magnesium 2.1 mg/dL (1.7-2.3); NT Pro B Type Natriuretic Pept 8170 pg/mL (0-450); Osmolality Calculated 277 mOsm/kg (285-295); Phosphorus 2.6 mg/dL (2.5-4.5); Potassium 4.5 mmol/L (3.5-5.1); Sodium 127 mmol/L (136-145); Total Bilirubin 1.1 mg/dL (0.15-1.2)
[2022-06-14 15:33] LABS: Add Urine Microscopic? YES; Bilirubin Urine 1+ (Negative); Blood Urine 2+ (Negative); Glucose Urine UA Norm (Normal); Ketones Urine Negative (Negative); Leukocyte Esterase Urine 2+ (Negative); Nitrate Urine Negative (Negative); Protein Urine 1+ (Negative); Specific Gravity, Urine 1.015 (1.005-1.030); Urine Appearance Hazy (CLEAR); Urine Color Dark Yellow (Yellow); Urobilinogen Urine 1 mg/dL (Negative); pH Urine 6 (5-7)
[2022-06-14 15:34] LABS: Add Urine Culture? Yes; Bacteria Urine 3+ /hpf; RBC Urine 0-4 /hpf (0-2); Squamous Epithelial Cell Urine 0-4 /hpf (0-5); WBC Urine 25-40 /hpf (0-5)
[2022-06-14 15:35] LABS: Amphetamines Screen Urine Negative (Negative); Barbiturates Screen Urine Negative (Negative); Benzodiazepines Screen Urine Negative (Negative); Cocaine Screen Urine Negative (Negative); Opiate Screen Urine Negative (Negative); PCP Screen Urine Negative (Negative); THC Screen Urine Negative (Negative)
--- NOTE | 2022-06-14 16:16 | ECG_ITS ---
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 Measurements Intervals [place] Rate: 85 P: 0 PA: 0 QRS: -64 QRSD: 146 T: 141 QT: 452 QTc: 539 Interpretive Statements ATRIAL FIBRILLATION LEFT AXIS DEVIATION [QRS AXIS < -30] LEFT BUNDLE BRANCH BLOCK [120+ ms QRS DURATION, 80+ ms Q/S IN V1/V2, 85+ ms R IN I/aVL/V5/V6] Compared to ECG 06/14/2022 14:54:18 Left-axis deviation now present Left bundle-branch block now present Sinus tachycardia no longer present First degree AV block no longer present Intraventricular conduction delay no longer present Myocardial infarct finding no longer present Electronically Signed On 06-15-2022 2:24:32 CDT by Frantz Warren M.D. [id number]
[2022-06-14 17:43] LABS: Troponin 5 2HR 75.05 ng/L (0-10); Troponin 5 2HR Delta 1.05 ABS# (0-10)
--- NOTE | 2022-06-14 17:55 | CTR_ITS ---
PROCEDURE INFORMATION: Exam: CT Chest Without Contrast; Diagnostic Exam date and time: 06/14/2022 6:21 PM Age: 81 years old Clinical indication: Abdominal pain; Acute; Chest pressure; Prior surgery; Surgery date: 6+ months; Surgery type: Choley; Additional info: Pna? Obstructive uropathy TECHNIQUE: Imaging protocol: Diagnostic computed tomography of the chest without contrast. Radiation optimization: All CT scans at this facility use at least one of these dose optimization techniques: automated exposure control; mA and/or kV adjustment per patient size (includes targeted exams where dose is matched to clinical indication); or iterative reconstruction. REPORTING DATA: Count of CT and Cardiac NM exams in prior 12 months: This patient has received 2 known CTs and 0 known cardiac nuclear medicine studies in the 12 months prior to the current study. COMPARISON: CTA Chest-Pulmonary Emb [id number] 11/12/2018 11:59 PM RADIATION DOSE METRICS: Total DLP (mGy-cm): 929.46 FINDINGS: Lungs: There are pulmonary parenchymal calcifications consistent with remote granulomatous organism exposure. No evidence for pneumonia. Pleural spaces: Small left pleural effusion with adjacent compressive atelectasis. Heart: Unremarkable. No cardiomegaly. No pericardial effusion. Coronary arteries: Multivessel atherosclerotic disease which involves the coronary arteries. Lymph nodes: Unremarkable. No enlarged lymph nodes. Vasculature: Unremarkable. No aortic aneurysm. Bones/joints: Unremarkable. No acute fracture. Soft tissues: There is edema in the soft tissues. PROCEDURE INFORMATION: Exam: CT Abdomen And Pelvis Without Contrast Exam date and time: 06/14/2022 6:21 PM Age: 81 years old Clinical indication: Abdominal pain; Acute; Chest pressure; Prior surgery; Surgery date: 6+ months; Surgery type: Choley; Additional info: Pna? Obstructive uropathy TECHNIQUE: Imaging protocol: Computed tomography of the abdomen and pelvis without contrast. Radiation optimization: All CT scans at this facility use at least one of these dose optimization techniques: automated exposure control; mA and/or kV adjustment per patient size (includes targeted exams where dose is matched to clinical indication); or iterative reconstruction. REPORTING DATA: Count of CT and Cardiac NM exams in prior 12 months: This patient has received 2 known CTs and 0 known cardiac nuclear medicine studies in the 12 months prior to the current study. COMPARISON: CT kidney stone [id number] 11/17/2018 4:26 PM RADIATION DOSE METRICS: Total DLP (mGy-cm): 929.46 FINDINGS: Coronary arteries: Multivessel atherosclerotic disease which involves the coronary arteries. Liver: Lobulated liver consistent with cirrhosis. Gallbladder and bile ducts: The gallbladder has been removed. Pancreas: Normal. No ductal dilation. Spleen: Normal. No splenomegaly. Adrenal glands: Normal. No mass. Kidneys and ureters: Normal. No hydronephrosis. Stomach and bowel: Unremarkable. No obstruction. No mucosal thickening. Appendix: No evidence of appendicitis. Intraperitoneal space: There is a moderate amount of free intraperitoneal fluid/ascites in the abdomen/pelvis. Vasculature: Unremarkable. No abdominal aortic aneurysm. Lymph nodes: Unremarkable. No enlarged lymph nodes. Urinary bladder: Unremarkable as visualized. Reproductive: The uterus is not visualized, consistent with hysterectomy. Bones/joints: Unremarkable. No acute fracture. Soft tissues: There is edema in the soft tissues. Small fat containing periumbilical hernia. CT/[place] [id number] IMPRESSION: 1. Mild cardiomegaly associated with a small left pleural effusion raises concern for congestive heart failure. 2. Multivessel atherosclerotic disease which involves the coronary arteries. IMPRESSION: Cirrhotic liver with associated ascites and soft tissue edema
--- NOTE | 2022-06-14 17:57 | P.HP_ITS ---
Providers/Chief Complaint Primary Care Provider: Kalin Hawkins MD Chief Complaint: AMS/ WEAKNESS/ LOW BP History of Present Illness Iza Smith is a 81 year old female with a past medical history of paroxysmal atrial fibrillation not on anticoagulation, insulin-dependent type 2 diabetes mellitus, CKD stage III, diastolic CHF, history of hypertension, who presents [facility] due to altered mental status. Currently patient is alert to person, not place, not to time, she does follow commands at times, but is confused she has no complaints, she does not know where she is at, she does not recognize family members at bedside. Patient's oldest daughter and youngest son are at bedside, they tell me that she lives home with multiple family members, she does not ambulate, she requires assistance for feeding. She has a home health care nurse, she has a right foot diabetic ulcer, that home health care nurse helps dresses, is looking better. He also has been having fluid overload, she has been on diuresis and her edema has been improving. However this morning, she has been quite confused, has had poor appetite, no facial droop no slurring of her words,seizure-like activity Review of Systems General: Reports: ROS unobtainable due to mental status Medications/Allergies Home Medications Medication Instructions Recorded Confirmed Last Taken Type sodium bicarbonate 650 mg tablet 650 mg PO BID 03/17/21 06/14/22 06/14/22 History nitroglycerin 0.4 mg sublingual 0.4 mg sublingual Q5M PRN chest 08/04/21 06/14/22 Unknown Rx tablet (Nitrostat) pain #30 tabs blood sugar diagnostic (ReliOn #100 ea 08/18/21 06/14/22 Unknown Rx Prime Test Strips) potassium chloride 10 mEq 20 meq PO DAILY PRN low potassium 10/14/21 06/14/22 Unknown Rx capsule,extended release #60 caps sitagliptin phosphate 100 mg 100 mg PO DAILY #30 tabs 11/17/21 06/14/22 06/14/22 Rx tablet (Januvia) calcitriol 0.25 mcg capsule See Rx Instructions .Route .COMPLEX 06/14/22 06/14/22 06/13/22 History cholecalciferol (vitamin D3) 50 100 mcg PO DAILY 06/14/22 06/14/22 06/14/22 History mcg (2,000 unit) tablet (Vitamin D3) clopidogrel 75 mg tablet 75 mg PO DAILY 06/14/22 06/14/22 06/14/22 History glimepiride 4 mg tablet 4 mg PO DAILY 06/14/22 06/14/22 06/14/22 History rosuvastatin 20 mg tablet 20 mg PO BEDTIME 06/14/22 06/14/22 06/13/22 History torsemide 20 mg tablet 20 mg PO DAILY 06/14/22 06/14/22 Unknown History Allergies Allergy/AdvReac Type Severity Reaction Status Date / Time ampicillin Allergy ALGY-Rash Verified 06/14/22 14:24 aspirin Allergy Unknown Verified 06/14/22 14:24 cefazolin Allergy ALGY-Rash Verified 06/14/22 14:24 ciprofloxacin [From Cipro] Allergy ALGY-Rash Verified 06/14/22 14:24 doxycycline [From Vibramycin] Allergy Unknown Verified 06/14/22 14:24 levofloxacin [From Levaquin] Allergy Unknown Verified 06/14/22 14:24 lisinopril Allergy ADR-Cough Verified 06/14/22 14:24 nitrofurantoin Allergy Unknown Verified 06/14/22 14:24 [From Macrobid] Penicillins Allergy ALGY-Rash Verified 06/14/22 14:24 Sulfa (Sulfonamide Allergy ALGY-Rash Verified 06/14/22 14:24 Antibiotics) PFSH Acute PFSH: Medical History (Updated 06/14/22 @ 18:09 by Michael Pastrana MD) A-fib CKD (chronic kidney disease), stage III Diabetes mellitus HTN (hypertension), benign Surgical History S/P appendectomy S/P cataract surgery S/P cholecystectomy S/P hysterectomy S/P tonsillectomy and adenoidectomy Family History Mother Hypertension Other Cancer Diabetes Stroke Social History Smoking and tobacco status: former smoker Alcohol intake: never Caregiver/support person: Yes Marital status: / Vitals/I&O/Wt Last Vital Signs Temp 97.7 F 06/14/22 13:54 Pulse 90 06/14/22 17:00 Resp 16 06/14/22 13:54 BP 138/76 06/14/22 17:00 Pulse Ox 100 06/14/22 17:00 O2 Del Method 06/14/22 17:00 Weight last 48 hrs Weight 90.718 kg Physical Exam Const: COMMON NORMALS: no acute distress EXAM LIMITATIONS: altered mental status ORIENTATION/CONSCIOUSNESS: Yes awake, Yes oriented to person and Yes confused; not oriented to place and not oriented to time HENMT: COMMON NORMALS: normocephalic HEAD & SCALP: normocephalic Eye: COMMON NORMALS: Equal, round and reactive pupils present Neck/C-Spine: COMMON NORMALS: full ROM and no lymphadenopathy Lymph: LYMPHATIC: no lymphadenopathy noted Resp: COMMON NORMALS: normal respiratory effort, No retractions, No use of accessory muscles and clear to auscultation bilaterally AUSCULTATION: clear to auscultation bilaterally Cardio: COMMON NORMALS: regular rate, regular rhythm, S1 normal heart sound present and S2 normal heart sound present RATE: regular rate RHYTHM: regular rhythm HEART SOUNDS: S1 normal heart sound present and S2 normal heart sound present GI: COMMON NORMALS: Normal to inspection, nondistended, normoactive bowel sounds present, Soft to palpation and non-tender Extremity: COMMON NORMALS: no pedal edema Neuro: OTHER: Does not follow neurologic testing Right foot, diabetic ulcer, under the big toe, measuring 1 x 1 cm round, good granulation tissue Data 06/14/22 14:45 06/14/22 14:45 Other Labs: - EKG personally reviewed, sinus tachycardia, possibly A-fib -Chest x-ray reviewed, left lower lobe consolidation possible pneumonia A&P Assessment and plan (1) Acute alteration in mental status: (2) Urinary tract infection: (3) Acute hyponatremia: (4) Dehydration: (5) Aspiration pneumonia: (6) NSTEMI (non-ST elevated myocardial infarction): (7) Transaminitis: (8) Diabetic ulcer of foot associated with diabetes mellitus due to underlying condition, limited to breakdown of skin: (9) Goals of care, counseling/discussion: (10) Diabetes mellitus: (11) A-fib: (12) HTN (hypertension), benign: (13) CKD (chronic kidney disease), stage III: Plan Acute encephalopathy -Likely multifactorial -UTI -Hyponatremia Urinary tract infection -Urine cultures, blood cultures -CT scan abdomen pelvis -Continue meropenem Possible pneumonia, possible aspiration pneumonia, aspiration pneumonitis -Aspiration precautions -Clear liquid diet -Speech therapy eval -CT chest Hyponatremia -Possibly secondary to diuresis, dehydration -Gentle IV hydration Non-ST elevation VA -Likely type II NSTEMI, from UTI, hyponatremia, encephalopathy -Serial EKGs, serial troponins telemetry monitoring -Cardiac echo Transaminitis -CT of the abdomen as above History of atrial fibrillation, paroxysmal -Not on anticoagulation -Continue Plavix -Telemetry monitoring Type II days mellitus Low-dose sliding scale Diabetic ulcer -Wound care Speech therapy eval PT OT Lovenox for DVT prophylaxis Goals of care discussion, family is not ready to make a decision about goals of care, they are agreeable to full code for now until I make a decision, patient has not made it clear to them what her goals of care are, cannot make decisions for herself Spoke to ER provider Attestations Medical Necessity Statement*: Patient requires hospitalization, for acute encephalopathy, UTI, pneumonia, possible aspiration pneumonia, aspiration pneumonitis, NSTEMI, transaminitis, dehydration, hyponatremia Diagnoses Acute alteration in mental status R41.82 Urinary tract infection N39.0 Acute hyponatremia E87.1 Dehydration E86.0 Aspiration pneumonia J69.0 NSTEMI (non-ST elevated myocardial infarction) I21.4 Transaminitis R74.01 Diabetic ulcer of foot associated with diabetes mellitus due to underlying condition, limited to breakdown of skin E08.621; L97.501 Goals of care, counseling/discussion Z71.89 Diabetes mellitus E11.9 A-fib I48.91 HTN (hypertension), benign I10 CKD (chronic kidney disease), stage III N18.3
[2022-06-14 18:16] LABS: Lactic Sepsis W/Reflex 2.5 mmol/L (0.5-2.2)
[2022-06-14 18:27] LABS: C Reactive Protein 11.8 mg/L (0.0-4.9); Ferritin 252 ng/mL (15-150); Iron 130 ug/dL (37-145); Total Iron Binding Capacity 194 mcg/dl; Unsaturated Iron Binding 64 ug/dL (112-347)
[2022-06-14 19:12] LABS: Procalcitonin 0.32 ng/mL (0-0.5)
[2022-06-14 19:19] LABS: Reflex Lactate Order REFLEX LACTIC ORDERD
--- NOTE | 2022-06-14 20:16 | ECG_ITS ---
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 Measurements Intervals [place] Rate: 64 P: 46 MA: 202 QRS: 34 QRSD: 143 T: 211 QT: 502 QTc: 519 Interpretive Statements SINUS RHYTHM LEFT BUNDLE BRANCH BLOCK [120+ ms QRS DURATION, 80+ ms Q/S IN V1/V2, 85+ ms R IN I/aVL/V5/V6] Compared to ECG 06/14/2022 16:28:04 Atrial fibrillation no longer present Left-axis deviation no longer present Electronically Signed On 06-15-2022 16:23:46 CDT by Jose Alfredo Snigh M.D. [id number]
[2022-06-14 20:45] LABS: Lactic Acid level (Lactate) 3.4 mmol/L (0.5-2.2); Troponin 5 6HR 75.28 ng/L (0-10); Troponin 5 6HR Delta 1.28 ng/L (0-12)
[2022-06-14 21:12] LABS: Glucose Point of Care 187 mg/dL (70-110)
[2022-06-14 21:42] LABS: Estmated Average Glucose 200; Hemoglobin A1C 8.6 % (4.0-6.0)
[2022-06-14 21:54] LABS: Thyroid Stimulating Hormone 6.04 uIU/mL (0.27-4.20)
[2022-06-14] MEDS: meropenem 1,000 MG in sodium chloride 0.9% (plus) 50 ML 100 MG IV (22:09)
[2022-06-14] MEDS: sodium chloride 0.9% 1,000 ML 50 ML IV (22:09)
[2022-06-14] MEDS: atorvastatin 40 mg Tablet PO (22:10)
[2022-06-14] MEDS: enoxaparin 40 mg/0.4 mL Syringe SUBCUT (22:10)
[2022-06-14] MEDS: insulin lispro 100 unit/1 mL SUBCUT (22:10)
[2022-06-14] MEDS: pantoprazole 40 mg SDV IVP (22:52)
[2022-06-14 22:55] LABS: Hepatitis A Antibody IgM Non-Reactive (Nonreactive); Hepatitis B Core IgM Non-Reactive (Nonreactive); Hepatitis B Surface Antigen Non-Reactive (Nonreactive); Hepatitis C Virus Antibody Non-Reactive (Nonreactive)
[2022-06-14 23:08] LABS: HIV 1 & 2 Antigen Reactive (Non-Reactiv)
[2022-06-14 23:09] LABS: HIV 1 & 2 Antibody Non-Reactive (Non-Reactiv)
[2022-06-15] VITALS (10 sets, daily range): BP systolic 95–166; BP diastolic 59–80; PULSE 62–70; RESP 16–17; TEMP 36.5–37; O2SAT 96–98
[2022-06-15 05:43] LABS: Basophils % 0.8 %; Eosinophils # 0.1 10^3/uL (0.0-0.8); Hematocrit 34.5 % (37.0-47.0); Hemoglobin 11.5 g/dL (11.5-15.3); Lymphocytes # 1.1 10^3/uL (0.8-4.8); Mean Corpuscular HGB Conc 33.3 g/dL (30.0-36.0); Mean Corpuscular Hemoglobin 29.6 pg (28.0-34.0); Mean Corpuscular Volume 88.9 fl (81-99); Mean Platelet Volume 10.1 fL (7.4-10.4); Monocytes # 0.5 10^3/uL (0.2-0.9); Monocytes % 9.9 %; Neutrophils # 3.33 10^3/uL (1.8-7.7); Neutrophils % 65.9 %; Nucleated Red Blood Cells % 0 %; Platelet Count 95 10^3/cmm (130-400); Red Blood Count 3.88 10^6/uL (4.1-5.3); White Blood Count 5.1 10^3/uL (4.0-10.0)
[2022-06-15 05:58] LABS: Partial Thromboplastin Time 36.1 SECONDS (23.9-36.7)
[2022-06-15 06:04] LABS: Anion Gap 16.5 (5-19); Blood Urea Nitrogen 39 mg/dL (8-23); Calcium 7.5 mg/dL (8.5-10.5); Carbon Dioxide 20 mmol/L (22-29); Chloride 102 mmol/L (98-107); Glucose 111 mg/dL (65-115); Magnesium 2.1 mg/dL (1.7-2.3); Osmolality Calculated 288 mOsm/kg (285-295); Phosphorus 3.2 mg/dL (2.5-4.5); Potassium 4.5 mmol/L (3.5-5.1); Sodium 134 mmol/L (136-145)
[2022-06-15] MEDS: meropenem 1,000 MG in sodium chloride 0.9% (plus) 50 ML 100 MG IV (06:37)
[2022-06-15 06:46] LABS: Glucose Point of Care 101 mg/dL (70-110)
[2022-06-15] MEDS: clopidogrel 75 mg Tablet PO (08:29)
--- NOTE | 2022-06-15 09:00 | PC.NURSE ---
Upon assessing patient after transfer from ICU 06/14/22, Patient had exp. wheezing, productive cough and lungs were coarse. I turned off fluids and notified Dr. Pastrana. I have kept fluids shut off this morning as well as patient still sounds the same.
--- NOTE | 2022-06-15 09:11 | PC.CHAP ---
Pastoral Care Encounter/Spiritual Assessment Type of Contact [] Declined sign painter visit [] Patient/Family/Request visit [] Outpatient visit [] Follow-up visit [] Physician referral [] Code/Alert [x] Routine visit [] Staff referral [] Actively dying [] Patient sleeping [] Family support [] [] Out of room [] Palliative care [] [] Receiving care in room [] Pre-surgical visit [] Trauma [] Long length of stay [] ICU visit [] Other: Relational/Emotional Strength [x] Patient feels connected with others/family/visitors/staff [] Distress [] Loneliness/isolation [] Abandonment Spirituality of Patient [x] Person of Lety [] Attends Christianity of their Lety [] Believes in Prayer [] Reads Bible or Mandaeism materials [] There are Spiritual issues to be addressed Forest Pathologist Interventions [] Prayer [x] Active listening [x] Non-anxious presence [x] Spiritual/emotional support [] Crisis/trauma care [] Spiritual counseling [] Bereavement support [] Provided bereavement packet [] Provided Bible/devotional materials [] Provided toy/stuffed animal, coloring book to patient or family member [] Provided Communion [] Anointing/[place] [] Salvation [x] Completed spiritual assessment [] Other: Impact on Illness or Injury [] Angry [] Fearful [] Anxious [] Often cries [] Exhaustion [] Unable to work [] Unable to attend restorationist [] Unable to walk/stand [] Unable to read [] Unable to drive [] Unable to eat/drink [] Unable to sleep [] Unable to be with family [] Patient intubated [] Other: Summary Daughter was present for visit. Pt lives with a daughter but not the one currently present. Time spent with patient 5m
[2022-06-15 10:38] LABS: Free T4 Free Thyroxine 1.27 ng/dL (0.82-1.77); T3 Free 1.9 PG/ML (2.0-4.4)
--- NOTE | 2022-06-15 10:38 | PC.PHAR ---
RENAL ADJUSTING OF CURRENT MEDICATIONS: With patient's current renal function, her enoxaparin is recommended at 30mg every 24 hours and the meropenem is recommended at 500mg every 12 hours. Current orders will be replaced with recommended doses and frequencies. Please let us know if there is any questions/concerns Thanks, Jabari Naranjo, Pharm.D
[2022-06-15 10:51] LABS: Glucose Point of Care 152 mg/dL (70-110)
[2022-06-15] MEDS: insulin lispro 100 unit/1 mL SUBCUT ×2 (11:17→18:05)
[2022-06-15] MEDS: albumin 25 G/100 ML BAG 60 G IV ×2 (11:18→22:08)
[2022-06-15 11:52] LABS: Lactate (Lactic Acid level) 2.7 mmol/L (0.5-2.2)
--- NOTE | 2022-06-15 13:49 | P.PN_ITS ---
Subjective Subjective: Patient was seen this morning, she sitting up in a chair, alert and oriented to person, to place, not to time, she follows commands, denies any complaints Vitals/I&O/Wt Last Vital Signs Temp 98.1 F 06/15/22 12:00 Pulse 67 06/15/22 12:00 Resp 17 06/15/22 12:00 BP 126/70 06/15/22 12:00 Pulse Ox 97 06/15/22 12:00 O2 Del Method Room Air 06/15/22 12:00 06/14/22 06/15/22 06/15/22 22:59 06:59 14:59 Intake Total 0 / 0 50 / 50 1860 / 1860 Output Total 0 / 0 Balance 0 / 0 50 1860 / 1860 Weight last 48 hrs Weight 85.049 kg Weight 90.718 kg Physical Exam Const: COMMON NORMALS: no acute distress ORIENTATION/CONSCIOUSNESS: Yes awake, Yes oriented to person and Yes oriented to place; not oriented to time Resp: COMMON NORMALS: normal respiratory effort, No retractions, No use of accessory muscles and clear to auscultation bilaterally AUSCULTATION: clear to auscultation bilaterally Cardio: COMMON NORMALS: regular rate, regular rhythm, S1 normal heart sound present and S2 normal heart sound present RATE: regular rate RHYTHM: regular rhythm HEART SOUNDS: S1 normal heart sound present and S2 normal heart sound present GI: COMMON NORMALS: Normal to inspection, nondistended, normoactive bowel sounds present and non-tender Extremity: COMMON NORMALS: no pedal edema Neuro: SENSORIUM/ORIENTATION: Yes oriented to person, Yes oriented to place and No oriented to time Psych: COMMON NORMALS: mental status grossly normal Data 06/15/22 04:14 06/15/22 04:16 Micro: Microbiology 06/14/22 15:10 Urine Culture - Preliminary Urine,Clean Catch Gram Negative Rods 06/14/22 21:50 Blood Culture - Preliminary Blood SPECIMEN COLLECTED 06/14/22 21:45 Blood Culture - Preliminary Blood SPECIMEN COLLECTED A&P Assessment and plan (1) Liver cirrhosis: (2) Hypothyroidism: (3) Acute alteration in mental status: (4) Urinary tract infection: (5) Acute hyponatremia: (6) Dehydration: (7) Aspiration pneumonia: (8) NSTEMI (non-ST elevated myocardial infarction): (9) Transaminitis: (10) Diabetic ulcer of foot associated with diabetes mellitus due to underlying condition, limited to breakdown of skin: (11) Goals of care, counseling/discussion: (12) Diabetes mellitus: (13) A-fib: (14) HTN (hypertension), benign: (15) CKD (chronic kidney disease), stage III: (16) Acute kidney injury: Plan HIV antigen 1and 2 positive, however antibody negative, HIV RNA ordered Hypothyroidism, levothyroxine Acute encephalopathy, resolved -Likely multifactorial -UTI -Hyponatremia Urinary tract infection -Urine cultures, blood cultures -CT scan abdomen pelvis -Continue meropenem Possible pneumonia, possible aspiration pneumonia, aspiration pneumonitis -Aspiration precautions -Clear liquid diet, advance as tolerated -Speech therapy eval Acute kidney injury on chronic kidney disease, creatinine up to 1.8, increase f luids to 100 cc Hyponatremia -Possibly secondary to diuresis, dehydration -Gentle IV hydration Non-ST elevation [place] -Likely type II NSTEMI, from UTI, hyponatremia, encephalopathy -Serial EKGs, serial troponins telemetry monitoring -Cardiac echo Transaminitis -CT of the abdomen shows evidence of liver cirrhosis Liver cirrhosis -Hep C negative -We will order ferritin -We will order [place] History of atrial fibrillation, paroxysmal -Not on anticoagulation -Continue Plavix -Telemetry monitoring Type II days mellitus Low-dose sliding scale Diabetic ulcer -Wound care Speech therapy eval PT OT Lovenox for DVT prophylaxis Goals of care discussion, family is not ready to make a decision about goals of care, they are agreeable to full code for now until I make a decision, patient has not made it clear to them what her goals of care are, cannot make decisions for herself Attestations Medical Necessity Statement*: Patient requires high position for encephalopathy, UTI, possible aspiration pneumonia, EUGENIO, hyponatremia, NSTEMI, Diagnoses Liver cirrhosis K74.60 Hypothyroidism E03.9 Acute alteration in mental status R41.82 Urinary tract infection N39.0 Acute hyponatremia E87.1 Dehydration E86.0 Aspiration pneumonia J69.0 NSTEMI (non-ST elevated myocardial infarction) I21.4 Transaminitis R74.01 Diabetic ulcer of foot associated with diabetes mellitus due to underlying condition, limited to breakdown of skin E08.621; L97.501 Goals of care, counseling/discussion Z71.89 Diabetes mellitus E11.9 A-fib I48.91 HTN (hypertension), benign I10 CKD (chronic kidney disease), stage III N18.3 Acute kidney injury N17.9
[2022-06-15 14:33] LABS: Ferritin 204 ng/mL (15-150)
[2022-06-15 17:04] LABS: Glucose Point of Care 292 mg/dL (70-110)
[2022-06-15] MEDS: sodium chloride 0.9% 1,000 ML 100 ML IV (18:06)
[2022-06-15] MEDS: meropenem 500 MG in sodium chloride 0.9% (plus) 50 ML 100 MG IV (18:06)
[2022-06-15 21:55] LABS: Glucose Point of Care 252 mg/dL (70-110)
[2022-06-15] MEDS: enoxaparin 30 mg/0.3 mL Syringe SUBCUT (22:07)
[2022-06-15] MEDS: pantoprazole 40 mg SDV IVP (22:07)
[2022-06-15] MEDS: atorvastatin 40 mg Tablet PO (22:07)
[2022-06-16] VITALS (11 sets, daily range): BP systolic 152–167; BP diastolic 80–85; PULSE 64–76; RESP 14–18; TEMP 36.6–36.9; O2SAT 95–97
[2022-06-16] MEDS: levothyroxine 25 mcg Tablet PO (05:57)
[2022-06-16] MEDS: meropenem 500 MG in sodium chloride 0.9% (plus) 50 ML 100 MG IV ×2 (05:57→17:49)
[2022-06-16 06:35] LABS: Basophils # 0.1 10^3/uL (0.0-0.1); Basophils % 1.3 %; Eosinophils # 0.2 10^3/uL (0.0-0.8); Hematocrit 29.8 % (37.0-47.0); Lymphocytes # 1.1 10^3/uL (0.8-4.8); Lymphocytes % 26.7 %; Mean Corpuscular HGB Conc 33.6 g/dL (30.0-36.0); Mean Corpuscular Volume 92.3 fl (81-99); Mean Platelet Volume 9.9 fL (7.4-10.4); Monocytes # 0.5 10^3/uL (0.2-0.9); Monocytes % 12.3 %; Neutrophils # 2.12 10^3/uL (1.8-7.7); Neutrophils % 53.4 %; Nucleated Red Blood Cells % 0 %; Platelet Count 81 10^3/cmm (130-400); Red Blood Count 3.23 10^6/uL (4.1-5.3); Red Cell Distribution Width 14.2 % (12.1-15.1)
[2022-06-16 06:54] LABS: Glucose Point of Care 131 mg/dL (70-110)
[2022-06-16 06:56] LABS: Ammonia 56 umol/L (11-51)
[2022-06-16 06:57] LABS: Anion Gap 16.3 (5-19); Blood Urea Nitrogen 35 mg/dL (8-23); Calcium 7.4 mg/dL (8.5-10.5); Carbon Dioxide 20 mmol/L (22-29); Chloride 102 mmol/L (98-107); Glucose 132 mg/dL (65-115); Magnesium 2.1 mg/dL (1.7-2.3); Osmolality Calculated 288 mOsm/kg (285-295); Potassium 4.3 mmol/L (3.5-5.1); Sodium 134 mmol/L (136-145)
[2022-06-16] MEDS: clopidogrel 75 mg Tablet PO (07:52)
[2022-06-16 08:55] LABS: Glucose Point of Care 166 mg/dL (70-110)
[2022-06-16] MEDS: albumin 25 G/100 ML BAG 60 G IV ×2 (08:55→21:46)
[2022-06-16] MEDS: lactulose oral liq 20 gm/30 mL UDC PO (08:55)
[2022-06-16] MEDS: sodium chloride 0.9% 1,000 ML 100 ML IV ×2 (11:02→23:27)
[2022-06-16 12:29] LABS: HIV AG/AB 4th Generation NON-REACTIVE (NON-REACTIVE)
[2022-06-16] MEDS: insulin lispro 100 unit/1 mL SUBCUT ×2 (12:33→17:48)
[2022-06-16 12:37] LABS: Glucose Point of Care 206 mg/dL (70-110)
--- NOTE | 2022-06-16 15:53 | P.PN_ITS ---
Subjective Subjective: Patient was seen this morning, family at bedside, she feels well this morning, no fevers, no chills, no cough Vitals/I&O/Wt Last Vital Signs Temp 98 F 06/16/22 12:00 Pulse 76 06/16/22 14:00 Resp 16 06/16/22 12:00 BP 165/84 06/16/22 12:00 Pulse Ox 96 06/16/22 12:00 O2 Del Method Room Air 06/16/22 09:00 06/16/22 06/16/22 06/16/22 06:59 14:59 22:59 Intake Total 970.000 / 3610.000 660 / 660 Balance 970.000 / 3610.000 660 / 660 Weight last 48 hrs Weight 85.049 kg Physical Exam Const: COMMON NORMALS: no acute distress and patient oriented x3 Resp: COMMON NORMALS: normal respiratory effort, No retractions, No use of accessory muscles and clear to auscultation bilaterally AUSCULTATION: clear to auscultation bilaterally Cardio: COMMON NORMALS: regular rate, regular rhythm, S1 normal heart sound present and S2 normal heart sound present RATE: regular rate RHYTHM: regul ar rhythm HEART SOUNDS: S1 normal heart sound present and S2 normal heart sound present GI: COMMON NORMALS: Normal to inspection, nondistended, normoactive bowel sounds present and non-tender Extremity: COMMON NORMALS: no pedal edema Neuro: COMMON NORMALS: patient oriented x3 Psych: COMMON NORMALS: mental status grossly normal Data 06/16/22 06:17 06/16/22 06:17 Micro: Microbiology 06/14/22 15:10 Urine Culture - Final Urine,Clean Catch Escherichia coli 06/14/22 21:50 Blood Culture - Preliminary Blood NEGATIVE TO DATE 06/14/22 21:45 Blood Culture - Preliminary Blood NEGATIVE TO DATE A&P Assessment and plan (1) Liver cirrhosis: (2) Hypothyroidism: (3) Acute alteration in mental status: (4) Urinary tract infection: (5) Acute hyponatremia: (6) Dehydration: (7) Aspiration pneumonia: (8) NSTEMI (non-ST elevated myocardial infarction): (9) Transaminitis: (10) Diabetic ulcer of foot associated with diabetes mellitus due to underlying condition, limited to breakdown of skin: (11) Goals of care, counseling/discussion: (12) Diabetes mellitus: (13) A-fib: (14) HTN (hypertension), benign: (15) CKD (chronic kidney disease), stage III: (16) Acute kidney injury: Plan HIV antigen 1and 2 positive, however antibody negative, HIV RNA ordered Hypothyroidism, levothyroxine Acute encephalopathy, resolved -Likely multifactorial -UTI -Hyponatremia Urinary tract infection -Urine cultures, blood cultures -Continue meropenem Possible pneumonia, possible aspiration pneumonia, aspiration pneumonitis -Aspiration precautions -On cardiac diet -Speech therapy eval Acute kidney injury on chronic kidney disease, creatinine up to 2.8, increase fluids to 100 cc Hyponatremia -Possibly secondary to diuresis, dehydration -Gentle IV hydration Non-ST elevation [place] -Likely type II NSTEMI, from UTI, hyponatremia, encephalopathy -Serial EKGs, serial troponins telemetry monitoring Transaminitis -CT of the abdomen shows evidence of liver cirrhosis Liver cirrhosis -Hep C negative -We will order [place] History of atrial fibrillation, paroxysmal -Not on anticoagulation -Continue Plavix -Telemetry monitoring Type II days mellitus Low-dose sliding scale Diabetic ulcer -Wound care Speech therapy eval PT OT Hyperammonemia, 1 dose lactulose Lovenox for DVT prophylaxis Plan for today continue IV hydration, PT OT, albumin therapy, lactulose Attestations Medical Necessity Statement*: Patient requires hospitalization for encephalopathy, UTI, possible aspiration, EUGENIO, creatinine still 2.8, requiring IV fluids Diagnoses Liver cirrhosis K74.60 Hypothyroidism E03.9 Acute alteration in mental status R41.82 Urinary tract infection N39.0 Acute hyponatremia E87.1 Dehydration E86.0 Aspiration pneumonia J69.0 NSTEMI (non-ST elevated myocardial infarction) I21.4 Transaminitis R74.01 Diabetic ulcer of foot associated with diabetes mellitus due to underlying condition, limited to breakdown of skin E08.621; L97.501 Goals of care, counseling/discussion Z71.89 Diabetes mellitus E11.9 A-fib I48.91 HTN (hypertension), benign I10 CKD (chronic kidney disease), stage III N18.3 Acute kidney injury N17.9
[2022-06-16 17:03] LABS: Glucose Point of Care 205 mg/dL (70-110)
[2022-06-16 21:16] LABS: Glucose Point of Care 263 mg/dL (70-110)
[2022-06-16] MEDS: pantoprazole 40 mg SDV IVP (21:45)
[2022-06-16] MEDS: enoxaparin 30 mg/0.3 mL Syringe SUBCUT (21:53)
[2022-06-16] MEDS: atorvastatin 40 mg Tablet PO (21:53)
[2022-06-17] VITALS (7 sets, daily range): BP systolic 155–180; BP diastolic 70–88; PULSE 64–70; RESP 16–17; TEMP 36.6–36.9; O2SAT 95–96
[2022-06-17] MEDS: meropenem 500 MG in sodium chloride 0.9% (plus) 50 ML 100 MG IV (06:03)
[2022-06-17] MEDS: levothyroxine 25 mcg Tablet PO (06:03)
[2022-06-17 06:36] LABS: Ammonia 45 umol/L (11-51)
[2022-06-17 06:56] LABS: Glucose Point of Care 145 mg/dL (70-110)
[2022-06-17 07:24] LABS: Basophils # 0.1 10^3/uL (0.0-0.1); Basophils % 1.1 %; Eosinophils # 0.2 10^3/uL (0.0-0.8); Eosinophils % 4.6 %; Hematocrit 29.7 % (37.0-47.0); Hemoglobin 9.7 g/dL (11.5-15.3); Lymphocytes # 0.9 10^3/uL (0.8-4.8); Lymphocytes % 19.2 %; Mean Corpuscular HGB Conc 32.7 g/dL (30.0-36.0); Mean Corpuscular Hemoglobin 30.8 pg (28.0-34.0); Mean Corpuscular Volume 94.3 fl (81-99); Mean Platelet Volume 10.1 fL (7.4-10.4); Monocytes # 0.5 10^3/uL (0.2-0.9); Monocytes % 11.3 %; Neutrophils # 2.92 10^3/uL (1.8-7.7); Neutrophils % 63.6 %; Nucleated Red Blood Cells % 0 %; Platelet Count 71 10^3/cmm (130-400); Red Blood Count 3.15 10^6/uL (4.1-5.3); Red Cell Distribution Width 14.5 % (12.1-15.1); White Blood Count 4.6 10^3/uL (4.0-10.0)
[2022-06-17 07:47] LABS: Anion Gap 15.8 (5-19); Blood Urea Nitrogen 26 mg/dL (8-23); Calcium 7.1 mg/dL (8.5-10.5); Carbon Dioxide 16 mmol/L (22-29); Chloride 109 mmol/L (98-107); Glucose 123 mg/dL (65-115); Osmolality Calculated 290 mOsm/kg (285-295); Potassium 3.8 mmol/L (3.5-5.1); Sodium 137 mmol/L (136-145)
[2022-06-17] MEDS: insulin lispro 100 unit/1 mL SUBCUT ×2 (08:51→12:38)
[2022-06-17] MEDS: sodium chloride 0.9% 1,000 ML 100 ML IV (10:32)
[2022-06-17] MEDS: clopidogrel 75 mg Tablet PO (10:32)
--- NOTE | 2022-06-17 11:03 | PC.SOCIAL ---
IMM update IMM updated with patient. Verbalized an understanding. Copy Pg 2 provided. Initialled, dated, timed, and placed in chart.
[2022-06-17 11:38] LABS: Glucose Point of Care 203 mg/dL (70-110)
--- NOTE | 2022-06-17 11:59 | P.DS_ITS ---
Discharge Providers Date of Admission: 06/14/22 18:53 Date of Discharge: June 17, 2022 Attending Provider at Admission: Michael Pastrana MD Attending Provider at Discharge: Michael Pastrana MD Primary Care Provider: Kalin Hawkins MD Diagnoses at Discharge Discharge Diagnosis (1) Liver cirrhosis: Status: Acute (2) Hypothyroidism: Status: Acute (3) Acute alteration in mental status: Status: Acute (4) Urinary tract infection: Status: Acute (5) Acute hyponatremia: Status: Acute (6) Dehydration: Status: Acute (7) Aspiration pneumonia: Status: Acute (8) NSTEMI (non-ST elevated myocardial infarction): Status: Acute (9) Transaminitis: Status: Acute (10) Diabetic ulcer of foot associated with diabetes mellitus due to underlying condition, limited to breakdown of skin: Status: Acute (11) Goals of care, counseling/discussion: Status: Acute (12) Diabetes mellitus: Status: Acute (13) A-fib: Status: Acute (14) HTN (hypertension), benign: Status: Acute (15) CKD (chronic kidney disease), stage III: Status: Acute (16) Acute kidney injury: Status: Acute Reason for Visit Reason for Visit: AMS/ WEAKNESS/ LOW BP Hospital Course Hospital Course Iza Smith is a 81 year old female with a past medical history of paroxysmal atrial fibrillation not on anticoagulation, insulin-dependent type 2 diabetes mellitus, CKD stage III, diastolic CHF, history of hypertension, who presents [facility] due to altered mental status.? Currently patient is alert to person, not place, not to time, she does follow commands at times, but is confused she has no complaints, she does not know where she is at, she does not recognize family members at bedside.? Patient's oldest daughter and youngest son are at bedside, they tell me that she lives home with multiple family members, she does not ambulate, she requires assistance for feeding.? She has a home health care nurse, she has a right foot diabetic ulcer, that home health care nurse helps dresses, is looking better.? He also has been having fluid overload, she has been on diuresis and her edema has been improving.? However this morning, she has been quite confused, has had poor appetite, no facial droop no slurring of her words,seizure-like activity Patient was admitted to [facility] for altered mental status, secondary to UTI, received broad-spectrum antibiotic therapy, overall clinically improved, urine cultures showing E. coli, pansensitive, discharged on Patient EUGENIO during hospitalization likely secondary to dehydration, UTI, torsemide, received IV fluids, creatinine discharge 2.2. Patient was instructed to hold torsemide until Monday Patient had CT evidence of liver cirrhosis, likely secondary to underlying fatty liver disease, acute hep panel negative however I have ordered an NEWTON panel, follow liver function as outpatient, follow-up with Dr. Hawkins Patient had evidence of hyperammonemia from liver cirrhosis managed with lactulose, discharged on lactulose therapy Due to thrombocytopenia, I did HIV testing, patient is HIV 1 and 2 antigen were positive, however antibody were negative, I think this is likely a false positive, so I ordered an HIV RNA PCR, follow with Dr. Hawkins, I had a detailed discussion about this with patient's family and patient. They voiced understanding, all questions answered Patient also had evidence of aspiration pneumonia, received antibiotic therapy, consulted speech therapy did okay on a cardiac diet, discharged on antibiotic therapy - Patient's creatinine on discharge was 2.2 -Hold torsemide, and potassium until Monday -Hydrate at least 1 to 1-1/2 L a day -Patient is HIV antigen was positive, antibody was negative I repeated for degeneration test, which showed that the antibody was still negative -I have ordered the HIV RNA, please follow-up with Dr. Hawkins -I think this is likely a false positive however need to follow-up HIV RNA -I have stopped her glimepiride given your kidney function I recommend against its use due to high risk of hypoglycemia - Please monitor blood sugars closely -Your CT scan showed evidence of liver cirrhosis, please follow-up with Dr. Hawkins -I have ordered NEWTON, studies please follow-up with Dr. Hawkins for results -Given your elevated ammonia levels I have discharged you on low-dose lactulose, if you have diarrhea that persist with that you can change it to every other day -Watch out for any increased confusion Physical Exam Const: COMMON NORMALS: no acute distress and patient oriented x3 Resp: COMMON NORMALS: normal respiratory effort, No retractions, No use of accessory muscles and clear to auscultation bilaterally AUSCULTATION: clear to auscultation bilaterally Cardio: COMMON NORMALS: regular rate, regular rhythm, S1 normal heart sound present and S2 normal heart sound present RATE: regular rate RHYTHM: regular rhythm HEART SOUNDS: S1 normal heart sound present and S2 normal heart sound present GI: COMMON NORMALS: Normal to inspection, nondistended, normoactive bowel sounds present and non-tender Extremity: COMMON NORMALS: no pedal edema Neuro: COMMON NORMALS: patient oriented x3 Psych: COMMON NORMALS: mental status grossly normal Discharge Data Studies Completed and Pending Completed Studies During Hospitalization Category Date Time Status CT chest abdomen pelvis [[place] [id number] Cat Scan 06/14/22 17:55 Completed ] Stat CT head wo con* [id number] Stat Cat Scan 06/14/22 14:15 Completed XR chest 1V portable [id number] Stat Exams 06/14/22 14:15 Completed Pending at discharge Category Date Time Status NEWTON Profile Rheumatology Stat Lab 06/15/22 13:58 Received Ammonia AM LABS Lab 06/18/22 04:00 Ordered Ammonia AM LABS Lab 06/19/22 04:00 Ordered Blood Culture Routine Lab 06/14/22 21:50 Results Blood Culture Stat Lab 06/17/22 09:58 Results HIV 1/2 Antigen/AB 4th Gen Routine Lab 06/15/22 11:28 Results HIV RNA (PCR) Quant Stat Lab 06/15/22 04:16 Received Radiology Impressions Chest X-Ray 06/14/22 14:15 IMPRESSION: The consolidated appearance in the left base could be varying combinations of atelectasis infiltrate and pleural effusion. Recommend a lateral view or chest CT to further evaluate if clinically indicated. Some of this change may be chronic as suggested by similar change on 05/03/[address] 06/14/22 14:15 IMPRESSION: 1. No evidence of intracranial hemorrhage or mass effect. 2. Moderate small vessel changes. Moderate parenchymal volume loss. 3. Intracranial vascular calcification. 4. No acute intracranial findings. Chest/Abdomen/Pelvis CT 06/14/22 17:55 IMPRESSION: 1. Mild cardiomegaly associated with a small left pleural effusion raises concern for congestive heart failure. 2. Multivessel atherosclerotic disease which involves the coronary arteries. IMPRESSION: Cirrhotic liver with associated ascites and soft tissue edema Laboratory Results WBC 4.6 10^3/uL (4.0-10.0) 06/17/22 07:10 RBC 3.15 10^6/uL (4.1-5.3) L 06/17/22 07:10 Hgb 9.7 g/dL (11.5-15.3) L 06/17/22 07:10 Hct 29.7 % (37.0-47.0) L 06/17/22 07:10 MCV 94.3 fl (81-99) 06/17/22 07:10 MCH 30.8 pg (28.0-34.0) 06/17/22 07:10 MCHC 32.7 g/dL (30.0-36.0) 06/17/22 07:10 RDW 14.5 % (12.1-15.1) 06/17/22 07:10 Plt Count 71 10^3/cmm (130-400) L 06/17/22 07:10 MPV 10.1 fL (7.4-10.4) 06/17/22 07:10 Neut % (Auto) 63.6 % 06/17/22 07:10 Lymph % (Auto) 19.2 % 06/17/22 07:10 [place] % (Auto) 11.3 % 06/17/22 07:10 Eos % (Auto) 4.6 % 06/17/22 07:10 Baso % (Auto) 1.1 % 06/17/22 07:10 Neut # (Auto) 2.92 10^3/uL (1.8-7.7) 06/17/22 07:10 Lymph # (Auto) 0.9 10^3/uL (0.8-4.8) 06/17/22 07:10 [place] # (Auto) 0.5 10^3/uL (0.2-0.9) 06/17/22 07:10 Eos # (Auto) 0.2 10^3/uL (0.0-0.8) 06/17/22 07:10 Baso # (Auto) 0.1 10^3/uL (0.0-0.1) 06/17/22 07:10 Nucleated RBC % (auto) 0 % 06/17/22 07:10 Nucleated RBCs # 0.0 /100WBC 06/17/22 07:10 APTT 36.1 SECONDS (23.9-36.7) 06/15/22 04:16 Sodium 137 mmol/L (136-145) 06/17/22 07:10 Potassium 3.8 mmol/L (3.5-5.1) 06/17/22 07:10 Chloride 109 mmol/L (98-107) H 06/17/22 07:10 Carbon Dioxide 16 mmol/L (22-29) L 06/17/22 07:10 Anion Gap 15.8 (5-19) 06/17/22 07:10 BUN 26 mg/dL (8-23) H 06/17/22 07:10 Creatinine 2.2 mg/dL (0.5-0.9) H 06/17/22 07:10 GFR Calculation Not Reportable 06/17/22 07:10 Glucose 123 mg/dL (65-115) H 06/17/22 07:10 POC Glucose 203 mg/dL (70-110) H 06/17/22 11:27 Estimat Average Glucose 200 06/14/22 14:48 Hemoglobin A1c 8.6 % (4.0-6.0) H 06/14/22 14:48 Calculated Osmolality 290 mOsm/kg (285-295) 06/17/22 07:10 Lactic Acid 2.5 mmol/L (0.5-2.2) H 06/14/22 16:59 Lactic Acid (Sepsis) 3.4 mmol/L (0.5-2.2) H 06/14/22 20:10 Lactate 2.7 mmol/L (0.5-2.2) H 06/15/22 11:28 Calcium 7.1 mg/dL (8.5-10.5) L 06/17/22 07:10 Phosphorus 3.2 mg/dL (2.5-4.5) 06/15/22 04:16 Magnesium 2.0 mg/dL (1.7-2.3) 06/17/22 07:10 Iron 130 ug/dL (37-145) 06/14/22 17:19 TIBC 194 mcg/dl 06/14/22 17:19 % Saturation 67.0 % (20-50) H 06/14/22 17:19 Unsat Iron Binding 64 ug/dL (112-347) L 06/14/22 17:19 Ferritin 204 ng/mL (15-150) H 06/15/22 04:16 Total Bilirubin 1.1 mg/dL (0.15-1.2) 06/14/22 14:45 AST 81 U/L (0-32) H 06/14/22 14:45 ALT 36 U/L (0-33) H 06/14/22 14:45 Alkaline Phosphatase 268 U/L (35-105) H 06/14/22 14:45 Ammonia 45 umol/L (11-51) 06/17/22 06:05 Troponin T Baseline 74 ng/L (0-10) H 06/14/22 14:45 Troponin T 120 Minute 75.05 ng/L (0-10) H 06/14/22 16:59 Delta Troponin T 1.05 ABS# (0-10) 06/14/22 16:59 Troponin T Hi Sens 6Hr 75.28 ng/L (0-10) H 06/14/22 20:10 Troponin T Hi Sens 6Hr Delta 1.28 ng/L (0-12) 06/14/22 20:10 C-Reactive Protein 11.8 mg/L (0.0-4.9) H 06/14/22 17:19 NT-Pro-B Natriuret Pep 8170 pg/mL (0-450) H 06/14/22 14:45 Total Protein 6.0 g/dL (6.6-8.7) L 06/14/22 14:45 Albumin 2.4 g/dL (3.5-5.2) L 06/14/22 14:45 Globulin 3.6 g/dL (1.3-4.6) 06/14/22 14:45 Procalcitonin 0.32 ng/mL (0-0.5) 06/14/22 16:59 TSH 6.04 uIU/mL (0.27-4.20) H 06/14/22 17:19 Free T4 1.27 ng/dL (0.82-1.77) 06/15/22 04:16 Free T3 1.9 PG/ML (2.0-4.4) L 06/15/22 04:16 Urine Color Dark yellow (Yellow) 06/14/22 15:10 Urine Appearance Hazy (CLEAR) A 06/14/22 15:10 Urine pH 6 (5-7) 06/14/22 15:10 Ur Specific [place] 1.015 (1.005-1.030) 06/14/22 15:10 Urine Protein 1+ (Negative) H 06/14/22 15:10 Urine Glucose (UA) Norm (Normal) 06/14/22 15:10 Urine Ketones Negative (Negative) 06/14/22 15:10 Urine Blood 2+ (Negative) H 06/14/22 15:10 Urine Nitrate Negative (Negative) 06/14/22 15:10 Urine Bilirubin 1+ (Negative) H 06/14/22 15:10 Urine Urobilinogen 1 mg/dL (Negative) H 06/14/22 15:10 Ur Leukocyte Esterase 2+ (Negative) H 06/14/22 15:10 Urine RBC 0-4 /hpf (0-2) H 06/14/22 15:10 Urine WBC 25-40 /hpf (0-5) H 06/14/22 15:10 Ur Squamous Epith Cells 0-4 /hpf (0-5) H 06/14/22 15:10 Amorphous Sediment Not Reportable 06/14/22 15:10 Urine Bacteria 3+ /hpf (NONE) H 06/14/22 15:10 Urine Opiates Screen Negative ng/mL (Negative) 06/14/22 15:10 Ur Barbiturates Screen Negative ng/mL (Negative) 06/14/22 15:10 Ur Phencyclidine Scrn Negative ng/mL (Negative) 06/14/22 15:10 Ur Amphetamines Screen Negative ng/mL (Negative) 06/14/22 15:10 U Benzodiazepines Scrn Negative ng/mL (Negative) 06/14/22 15:10 Urine Cocaine Screen Negative ng/mL (Negative) 06/14/22 15:10 U Marijuana (THC) Screen Negative ng/mL (Negative) 06/14/22 15:10 Bacillus cereus Grp PCR Cancelled 06/14/22 21:45 Bacillus subtilis Grp PCR Cancelled 06/14/22 21:45 Rao-Melonie (PCR) Cancelled 06/14/22 21:45 Corynebacterium (PCR) Cancelled 06/14/22 21:45 Cutibacterium acnes (PCR) Cancelled 06/14/22 21:45 Enterococcus sp PCR Cancelled 06/14/22 21:45 E. faecium (TEM-PCR) Cancelled 06/14/22 21:45 E. faecalis (TEM-PCR) Cancelled 06/14/22 21:45 Hepatitis A IgM Ab Non-reactive (Nonreactive) 06/14/22 21:45 Hep Bs Antigen Non-reactive (Nonreactive) 06/14/22 21:45 Hep B Core IgM Ab Non-reactive (Nonreactive) 06/14/22 21:45 Hepatitis C Antibody Non-reactive (Nonreactive) 06/14/22 21:45 HIV 1&2 Ab & HIV 1 Ag Reactive (Non-Reactiv) H 06/14/22 21:45 HIV 1&2 Ag/Ab, 4th Gen Non-reactive (NON-REACTIVE) 06/15/22 11:28 HIV 1&2 Antibody Non-reactive (Non-Reactiv) 06/14/22 21:45 Lactobacillus sp (PCR) Cancelled 06/14/22 21:45 Listeria (PCR) Cancelled 06/14/22 21:45 List. monocytogenes PCR Cancelled 06/14/22 21:45 Micrococcus (PCR) Cancelled 06/14/22 21:45 Staphylococcus sp PCR Cancelled 06/14/22 21:45 Staph aureus (PCR) Cancelled 06/14/22 21:45 mecC-Methicil Res Gene Cancelled 06/14/22 21:45 MRSA (PCR) Cancelled 06/14/22 21:45 Staph epidermidis (PCR) Cancelled 06/14/22 21:45 Staph lugdunensis (TEM-PCR) Cancelled 06/14/22 21:45 Streptococcus sp PCR Cancelled 06/14/22 21:45 Strep agalactiae (PCR) Cancelled 06/14/22 21:45 S. anginosus Grp PCR Cancelled 06/14/22 21:45 Strep pneumoniae (PCR) Cancelled 06/14/22 21:45 S. pyogenes (PCR) Cancelled 06/14/22 21:45 Wth-[id number] Bacteria (PCR) Cancelled 06/14/22 21:45 Vancomycin Res ([place])REAL Cancelled 06/14/22 21:45 Vancomycin Res (VanB)REAL Cancelled 06/14/22 21:45 Vitals Last Vital Signs Temp 98 F 06/17/22 08:00 Pulse 66 06/17/22 08:36 Resp 16 06/17/22 08:00 BP 155/88 06/17/22 08:00 Pulse Ox 96 06/17/22 08:36 O2 Del Method Room Air 06/17/22 08:36 Discharge Plan Discharge Patient Disposition: Home Condition: Stable Prescriptions: New levothyroxine 25 mcg Tablet 25 mcg PO QAM 30 Days Qty: 30 0RF lactulose 20 gram/30 mL solution 10 g PO Q24H 30 Days Qty: 450 0RF Rx Instructions: for elevated ammonia levels Continued sodium bicarbonate 650 mg tablet 650 mg PO BID nitroglycerin [Nitrostat] 0.4 mg tablet, sublingual 0.4 mg SUBLINGUAL Q5M PRN (Reason: chest pain) Qty: 30 3RF (DME) ReliOn Prime Test Strips Strip See Rx Instructions .Route Qty: 100 3RF Rx Instructions: Test once daily Januvia 100 mg tablet 100 mg PO DAILY Qty: 30 3RF calcitriol 0.25 mcg capsule See Rx Instructions .ROUTE .COMPLEX Rx Instructions: 0.25 mcg orally on mon-mon-mon Vitamin D3 50 mcg (2,000 unit) Tablet 100 mcg PO DAILY clopidogrel 75 mg tablet 75 mg PO DAILY rosuvastatin 20 mg tablet 20 mg PO BEDTIME Held potassium chloride 10 mEq capsule, extended release 20 meq PO DAILY PRN (Reason: low potassium) Qty: 60 3RF Hold Instructions: Resume on 06/27/22. Rx Instructions: SMALLEST TAB POSSIBLE torsemide 20 mg tablet 20 mg PO DAILY Hold Instructions: Resume on 06/20/22. Discontinued glimepiride 4 mg tablet 4 mg PO DAILY Discharge Orders: Discharge Order (Routine); Ordered 06/17/22 Ordered By: Michael Pastrana Referrals: Kalin Hawkins MD [Primary Care Provider] - 1-3 days Discharge Diet: Cardiac Discharge Activity: Resume usual activity Patient Instructions: Opioid Safety Activity Restrictions/Additional Instructions: - Patient's creatinine on discharge was 2.2 -Hold torsemide, and potassium until Monday -Hydrate at least 1 to 1-1/2 L a day -Patient is HIV antigen was positive, antibody was negative I repeated for degeneration test, which showed that the antibody was still negative -I have ordered the HIV RNA, please follow-up with Dr. Hawkins -I think this is likely a false positive however need to follow-up HIV RNA -I have stopped her glimepiride given your kidney function I recommend against its use due to high risk of hypoglycemia - Please monitor blood sugars closely -Your CT scan showed evidence of liver cirrhosis, please follow-up with Dr. Hawkins -I have ordered NEWTON, studies please follow-up with Dr. Hawknis for results -Given your elevated ammonia levels I have discharged you on low-dose lactulose, if you have diarrhea that persist with that you can change it to every other day -Watch out for any increased confusion Discharge Attestations Time Spent in Discharge Care*: greater than 30 min Quality Metrics Clinical Quality Measures [ No reported AMI, CVA or VTE this stay] Coding Level of Care Code 12419 Total time (in minutes) for Discharge: 40 Diagnoses Liver cirrhosis K74.60 Hypothyroidism E03.9 Acute alteration in mental status R41.82 Urinary tract infection N39.0 Acute hyponatremia E87.1 Dehydration E86.0 Aspiration pneumonia J69.0 NSTEMI (non-ST elevated myocardial infarction) I21.4 Transaminitis R74.01 Diabetic ulcer of foot associated with diabetes mellitus due to underlying condition, limited to breakdown of skin E08.621; L97.501 Goals of care, counseling/discussion Z71.89 Diabetes mellitus E11.9 A-fib I48.91 HTN (hypertension), benign I10 CKD (chronic kidney disease), stage III N18.3 Acute kidney injury N17.9
[2022-06-17] MEDS: albumin 25 G/100 ML BAG 60 G IV (12:40)
[2022-06-17 12:55] LABS: COMPLEMENT, TOTAL (CH50) <13 U/mL (31-60)
[2022-06-17 13:10] LABS: CENTROMERE B ANTIBODY <1.0 NEG AI (<1.0 NEG); JO-1 ANTIBODY <1.0 NEG AI (<1.0 NEG); RNP ANTIBODY <1.0 NEG AI (<1.0 NEG); SCL-70 ANTIBODY <1.0 NEG AI (<1.0 NEG); SJOGREN'S ANTIBODY (SS-A) <1.0 NEG AI (<1.0 NEG); SM ANTIBODY <1.0 NEG AI (<1.0 NEG); SS-B <1.0 NEG AI (<1.0 NEG)
[2022-06-17 14:59] LABS: COMPLEMENT COMPONENT C3C 66 mg/dL; COMPLEMENT COMPONENT C4C <3 mg/dL
[2022-06-17] MEDS: cefdinir 300 MG CAPSULE PO (15:55)
[2022-06-17 16:00] LABS: THYROID PEROXIDASE ANTIBODIES 7 IU/mL (<9)
[2022-06-17 16:03] LABS: ANA SCREEN, IFA NEGATIVE (NEGATIVE)
--- NOTE | 2022-06-17 17:01 | PC.OT ---
OT tx attempted at this time. Pt declines tx stating I am going home . Pt's family present and verify pt will get to discharge if all her tests come back ok. Family requesting review of modified B UE home exercises and state she (pt) will be doing them with us at home . Therapist demonstrated exercises and family displays good understanding at this time. pt left in care of family to await discharge.
[2022-06-17 20:45] LABS: HIV RNA (CPY/ML) NOT DETECTED (NOT DETECTED); HIV RNA LOG NOT DETECTED copies/mL (NOT DETECTED)
[2022-06-21 00:35] LABS: DNA AB (DS) CRITHIDIA,IFA NEGATIVE (NEGATIVE)
== END 2022-06-17 17:15 | disposition home health service (06) | DRG 177 ==
LOC: ER 17:24 → MEDSURG 18:54
PROVIDERS: Admitting Provider Family Medicine; Emergency Provider Emergency Medicine; PCP Internal Medicine; Visit Provider Family Medicine
DX: J69.0 Pneumonitis due to inhalation of food and vomit (principal); I21.A1 Myocardial infarction type 2; N17.9 Acute kidney failure, unspecified; N39.0 Urinary tract infection, site not specified; G93.40 Encephalopathy, unspecified; E87.1 Hypo-osmolality and hyponatremia; B96.20 Unspecified Escherichia coli [E. coli] as the cause of diseases classified elsewhere; I48.0 Paroxysmal atrial fibrillation; E11.22 Type 2 diabetes mellitus with diabetic chronic kidney disease; I12.9 Hypertensive chronic kidney disease with stage 1 through stage 4 chronic kidney disease, or unspecified chronic kidney disease; E11.621 Type 2 diabetes mellitus with foot ulcer; N18.9 Chronic kidney disease, unspecified; L97.511 Non-pressure chronic ulcer of other part of right foot limited to breakdown of skin; E86.0 Dehydration; K74.60 Unspecified cirrhosis of liver; K76.0 Fatty (change of) liver, not elsewhere classified; D69.6 Thrombocytopenia, unspecified; Z79.02 Long term (current) use of antithrombotics/antiplatelets; Z87.891 Personal history of nicotine dependence
CPT/HCPCS: 36415; 36416; 70450; 71045; 71250; 74176; 80048; 80053; 80074; 80306; 81001; 82140; 82728; 82962; 83036; 83540; 83550; 83605; 83735; 83880; 84100; 84145; 84439; 84443; 84481; 84484; 85025; 85730; 86140; 86160; 86162; 86235; 86255; 86376; 87040; 87077; 87086; 87186; 87205; 87389; 87536; 87806; 92523; 92610; 93005; 94664; 96372; 97110; 97161; 97167; 97530; 97535; 99285; C9113; J1650; J1815; J2185; J7030; P9046; Q3014

== ENCOUNTER 2022-07-11 14:30 | Outpatient (CLI) | payer MEDICARE, MEDICAID, SELFPAY ==
[2022-07-11 15:40] LABS: Urine Color Dark Yellow (Yellow); pH Urine 5 (5-7)
[2022-07-11 15:41] LABS: Add Urine Microscopic? YES; Bilirubin Urine Neg (Negative); Blood Urine 3+ (Negative); Glucose Urine UA Norm (Normal); Ketones Urine Negative (Negative); Leukocyte Esterase Urine 1+ (Negative); Nitrate Urine Negative (Negative); Protein Urine 1+ (Negative); Urobilinogen Urine Norm (Negative); WBC Urine 15-25 /hpf (0-5)
[2022-07-11 15:42] LABS: Add Urine Culture? No; Bacteria Urine 1+ /hpf
[2022-07-11 15:44] LABS: Amorphous Sediment Urine 3+ /hpf
[2022-07-11 15:59] LABS: Urine Appearance Turbid (CLEAR)
== END 2022-07-11 14:31 | disposition home or self-care (01) ==
PROVIDERS: PCP Internal Medicine; Visit Provider Internal Medicine
DX: E87.6 Hypokalemia (principal); E11.9 Type 2 diabetes mellitus without complications
CPT/HCPCS: 81001